=== PATIENT | male | born 1945 | race Caucasian/White ===

== ENCOUNTER → 2019-02-11 11:56 | Outpatient (CLI) | payer OTHER, SELFPAY ==
[2019-02-11 12:38] LABS: BUN Creatinine Ratio 25.3 (6-22); Blood Urea Nitrogen 38 mg/dL (9-20); Estimated Glomerular Filt Rate 46.1 mL/min (>60)
--- NOTE | 2019-02-11 12:56 | DI.CT.S_ITS ---
PROCEDURE: CT ABDOMEN WO CON INDICATIONS: GENERALIZED ABD PAIN TECHNIQUE: After the administration of oral contrast, 5 mm thick sections acquired from the diaphragms to the iliac crests. 5 mm coronal and sagittal reformats were then performed. For radiation dose reduction, the following was used: automated exposure control, adjustment of mA and/or kV according to patient size. COMPARISON: [facility], CT, ABDOMEN/PELVIS WITH CONTRAST, 10/05/2012, 16:05. FINDINGS: Image quality: Excellent. Lung bases: Lung bases are clear. Midline sternotomy, pacer. Cardiomegaly with left ventricular and left atrial enlargement. Solid organs: Liver is normal in size. Gallbladder is unremarkable. Pancreas is normal in contours. Spleen is normal in size. No adrenal nodules. Both kidneys are normal in size, without hydronephrosis or nephrolithiasis. Peritoneum and bowel: Bowel loops demonstrate normal wall thickness and caliber. No free fluid or air. Mild colonic diverticulosis. Nodes and vessels: No retroperitoneal or mesenteric adenopathy by size criteria. Minimal increase in the size of an infrarenal abdominal aortic aneurysm, previously 3.4 x 3.6 cm and currently 4.1 x 4.1 cm. Unchanged size of right common iliac artery aneurysm, measuring 2.1 cm. Bones: No suspicious bony lesions. No vertebral body compression fractures. Miscellaneous: No ventral hernias. IMPRESSION: 1. Minimal increase in size of abdominal aortic aneurysm, measuring 4.1 x 4.1 cm. 2. Stable right common iliac artery aneurysm. Pelvis not imaged. 3. Cardiomegaly. 4. Mild diverticulosis of the descending colon. Dictated by: Srinath Crawford M.D. on 02/11/2019 at 13:56 Approved by: Srinath Crawford M.D. on 02/11/2019 at 14:11
== END ==
PROVIDERS: Family Provider Internal Medicine; PCP Internal Medicine; Visit Provider Internal Medicine
DX: R10.84 Generalized abdominal pain (principal); I71.4 Abdominal aortic aneurysm, without rupture; I72.3 Aneurysm of iliac artery; I51.7 Cardiomegaly; K57.30 Diverticulosis of large intestine without perforation or abscess without bleeding
CPT/HCPCS: 36415; 74150; 82565; 84520

== ENCOUNTER → 2019-02-22 10:05 | Outpatient (CLI) | payer OTHER, SELFPAY ==
[2019-02-24 16:25] LABS: Urea Breath Test >18YRS NOT DETECTED
== END ==
PROVIDERS: PCP Internal Medicine; Visit Provider Internal Medicine
DX: R10.84 Generalized abdominal pain (principal)
CPT/HCPCS: 83013

== ENCOUNTER → 2019-08-17 08:40 | Outpatient (CLI) | payer OTHER, SELFPAY ==
--- NOTE | 2019-08-17 | DI.US.S_ITS ---
PROCEDURE: US RENAL COMPLETE INDICATIONS: CKD STAGE III TECHNIQUE: Real-time scanning was performed of the kidneys and bladder, with image documentation. COMPARISON: [facility], CT, CT ABDOMEN WO [facility], 02/11/2019, 13:06. FINDINGS: Kidneys: Kidneys are normal in size. Right kidney measures 11.0 cm long; left kidney measures 12.0 cm long. Right renal cortical thickness is 1.7 cm; left renal cortical thickness is 1.8 cm. Renal cortical echotexture appears increased. No hydronephrosis or nephrolithiasis. No suspicious solid mass lesions. Bilateral parenchymal and parapelvic cysts are evident measuring up to approximately 2.5 cm in diameter. Bladder: Pre-void bladder volume is 202 mL. Post-void residual is 156 mL. Pre-void images demonstrate no intraluminal masses or stones. Miscellaneous: Aneurysmal dilatation of the abdominal aorta is present, measuring up to 4.1 cm in maximal AP dimension. This is similar to the exam from 02/11/19. IMPRESSION: 1. Echogenic bilateral kidneys is compatible with chronic medical renal disease. 2. No hydronephrosis or shadowing nephrolithiasis. 3. There is a moderate to large amount of residual urine within the bladder after voiding. 4. Abdominal aortic aneurysm. Dictated by: Watson Billy M.D. on 08/17/2019 at 9:04 Approved by: Watson Billy M.D. on 08/17/2019 at 9:08
== END ==
PROVIDERS: PCP Internal Medicine; Referring Provider Internal Medicine; Visit Provider Internal Medicine
DX: N18.3 Chronic kidney disease, stage 3 (moderate) (principal); I71.4 Abdominal aortic aneurysm, without rupture
CPT/HCPCS: 76770

== ENCOUNTER → 2019-09-01 19:17 | Outpatient (ROUT) | payer OTHER, SELFPAY ==
[2019-09-01 19:19] LABS: Bacteria Urine None Seen; RBC Urine None Seen (0-5/HPF); WBC Urine None Seen (0-5/HPF)
[2019-09-01 19:28] LABS: Appearance Urine UA CLEAR; Bilirubin Urine UA NEGATIVE (NEGATIVE); Color Urine UA YELLOW; Glucose Urine UA NEGATIVE (Negative); Ketones Urine UA NEGATIVE (NEGATIVE); Leukocyte Esterase Urine UA NEGATIVE (NEGATIVE); Nitrite Urine UA NEGATIVE (Negative); Occult Blood Urine UA NEGATIVE (Negative); Protein Urine UA TRACE (Negative); Specific Gravity Urine UA 1.015 (1.000-1.035); Urobilinogen Urine UA 0.2 E.U./dL (0.2)
[2019-09-01 19:34] LABS: Culture Indicated Urine Cult Not Indicated; Urine Comments Microscopic Normal
[2019-09-01 19:50] LABS: Alanine Aminotransferase 19 IU/L (<50); Albumin 4.4 g/dL (3.5-5.0); Albumin Globulin Ratio 1.6 (1.0-2.8); Alkaline Phosphatase 65 U/L (38-126); Aspartate Aminotransferase 30 IU/L (17-59); BUN Creatinine Ratio 16.7 (6-22); Bilirubin Total 0.6 mg/dL (0.2-1.3); Blood Urea Nitrogen 24 mg/dL (9-20); Calcium 9.9 mg/dL (8.4-10.2); Carbon Dioxide 30 mmol/L (22-32); Chloride 104 mmol/L (98-107); Estimated Glomerular Filt Rate 48.4 mL/min (>60); Globulin 2.8 g/dL (1.7-4.1); Glucose 109 mg/dL (80-110); HEMOLYSIS < 15 (0-50); Potassium 4.8 mmol/L (3.4-5.1); Sodium 140 mmol/L (137-145); Total Protein 7.2 g/dL (6.3-8.2)
[2019-09-03 06:36] LABS: PSA Free % 42.4 % (.); PSA, Total 2.9 ng/mL (0.0-4.0)
== END ==
PROVIDERS: PCP Internal Medicine; Visit Provider Internal Medicine
DX: Z12.5 Encounter for screening for malignant neoplasm of prostate (principal); R53.1 Weakness; R30.0 Dysuria
CPT/HCPCS: 80053; 81001; 84153; 84154

== ENCOUNTER → 2019-09-26 21:39 | Outpatient (ROUT) | payer OTHER, SELFPAY ==
[2019-09-26 22:05] LABS: Hematocrit 51.6 % (41-53); Hemoglobin 17.1 g/dL (13.5-17.5); Mean Corpuscular HGB Conc 33.2 % (30-36); Mean Corpuscular Hemoglobin 33.8 PG (26-34); Mean Corpuscular Volume 101.9 fL (80-100); Platelet Count 190 X10^3/uL (150-400); Red Blood Cell Count 5.06 X10^6/uL (4.5-5.9); Red Cell Distribution Width 13.8 % (11.6-14.8); White Blood Cell Count 9.8 X10^3/uL (4.5-11.0)
[2019-09-26 22:54] LABS: Add Manual Diff / Slide Review YES
[2019-09-26 23:49] LABS: Total Cells Counted 100
[2019-09-26 23:50] LABS: Macrocytosis 1+; Neutrophils Absolute Manual 5096 /uL (3000-5900)
[2019-09-27 06:09] LABS: Vitamin B12 799 pg/mL (239-931)
== END ==
PROVIDERS: PCP Internal Medicine; Visit Provider Internal Medicine
DX: R53.82 Chronic fatigue, unspecified (principal)
CPT/HCPCS: 82607; 84443; 85025

== ENCOUNTER → 2019-10-21 11:09 | Outpatient (CLI) | payer OTHER, SELFPAY ==
--- NOTE | 2019-10-21 | DI.CT.S_ITS ---
PROCEDURE: CT LUMBAR SPINE WO CON INDICATIONS: Spondylosis without myelopathy or radiculopathy, l TECHNIQUE: Noncontrast 3 mm thick sections acquired from the T12 level to the sacrum. Sagittal and coronal reformats were constructed. For radiation dose reduction, the following was used: automated exposure control. COMPARISON: [facility], CT, CT ABDOMEN WO CON, 02/11/2019, 13:06. FINDINGS: Image quality: Excellent. Bones: There is mild leftward scoliotic curvature with apex at L2-3. There is appearance of transitional mad may with what appears to be lumbarization of the 1st sacral vertebral body. For purposes of this exam, vertebral bodies are levels 1 through 5. There is slight wedge deformity identified at T10, unchanged. Minimal anterior osteophytes are present at T10, T11, T12, L2, L3 and L4. Moderate to severe disc space narrowing is noted at L4-5, moderate L5-S1, minimal L2-3 and L3-4. Mild disc bulges are noted at T12-L1, L1-L2, L2-3, L3-4, L4-5, L5-S1. Mild spinal stenosis is present at L1-L2, severe L2-3, moderate to severe L3-4. Moderate right and mild left foraminal narrowing at L2-3, severe right and moderate left L3-4, severe bilateral, right greater than left with slight flattening on the right at L4-5, severe right and moderate left L5-S1. Multilevel facet and ligamentum flavum hypertrophy are present. Soft tissues: No retroperitoneal masses or hematomas. Visualized aorta demonstrates aneurysmal dilation within the infrarenal portion measuring approximately 4.1 cm, unchanged compared to prior exam. IMPRESSION: 1. Multilevel degenerative changes. 2. Multilevel spinal stenosis most severe at L2-3 secondary to disc bulge with contributing affective facet/ligamentum flavum arthropathy. 3. Multilevel foraminal narrowing most severe at L3-4, L4-5, L5-S1 secondary to facet arthropathy as well as scoliotic curvature. Dictated by: Natty Chandler M.D. on 10/21/2019 at 15:18 Approved by: Natty Chandler M.D. on 10/21/2019 at 15:26
== END ==
PROVIDERS: PCP Internal Medicine; Referring Provider Internal Medicine; Visit Provider Physical Medicine & Rehabilitation
DX: M47.816 Spondylosis without myelopathy or radiculopathy, lumbar region (principal); M47.817 Spondylosis without myelopathy or radiculopathy, lumbosacral region; M48.061 Spinal stenosis, lumbar region without neurogenic claudication; M48.07 Spinal stenosis, lumbosacral region; M41.86 Other forms of scoliosis, lumbar region
CPT/HCPCS: 72131

== ENCOUNTER → 2020-04-24 11:35 | Outpatient (CLI) | payer OTHER, SELFPAY ==
--- NOTE | 2020-04-24 | DI.CT.S_ITS ---
PROCEDURE: CT ABDOMEN W CON INDICATIONS: Unspecified abdominal pain TECHNIQUE: After the administration of oral and intravenous contrast, 5 mm thick sections acquired from the diaphragms to the iliac crests. 5 mm thick coronal and sagittal reformats were acquired. For radiation dose reduction, the following was used: automated exposure control, adjustment of mA and/or kV according to patient size. COMPARISON: [facility], CT, ABDOMEN/PELVIS WITH CONTRAST, 03/23/2016, 20:38. [facility], CT, CT ABDOMEN WO CON, 02/11/2019, 13:06. FINDINGS: Image quality: Excellent. Lung bases: Left basilar atelectasis. Heart size is mildly increased. There is a cardiac pacemaker. Solid organs: Diffuse hepatic steatosis. Liver is normal in size and enhancement. Gallbladder is normal . Biliary system is non dilated. Pancreas enhances normally. Spleen is normal in size and enhancement. No adrenal nodules. Kidneys are normal in size, without hydronephrosis. There are parapelvic renal cysts in right kidney. Peritoneum and bowel: Stomach is mildly distended. With mild gastric wall thickening involving the lesser curvature There are scattered colonic diverticula. No CT findings to suggest acute diverticulitis. Moderate amount of stool in colon. Contrast enhanced bowel loops appear normal in caliber. No free fluid or air. Nodes and vessels: No retroperitoneal or mesenteric adenopathy by size criteria. There is a infrarenal abdominal aortic aneurysm measuring 3.9 x 3.8 cm. [id number] atherosclerotic calcification. Bones: No suspicious bony lesions. No vertebral body compression fractures. Mild levo scoliosis. Degenerative changes are noted in thoracic and lumbar spine. Miscellaneous: No ventral hernias. IMPRESSION: 1. No acute abnormality in abdomen. 2. Diverticulosis without diverticulitis. 3. Stable infrarenal abdominal aortic aneurysm measuring up to 3.9 cm. 4. Distended stomach. There is mild gastric wall thickening involving the lesser curvature. 5. Hepatic steatosis. Dictated by: Rito Marin M.D. on 04/24/2020 at 14:26 Approved by: Rito Marin M.D. on 04/24/2020 at 14:33
== END ==
PROVIDERS: PCP Internal Medicine; Referring Provider Internal Medicine; Visit Provider Internal Medicine
DX: R10.9 Unspecified abdominal pain (principal); I71.4 Abdominal aortic aneurysm, without rupture; K76.0 Fatty (change of) liver, not elsewhere classified; K57.90 Diverticulosis of intestine, part unspecified, without perforation or abscess without bleeding; K31.89 Other diseases of stomach and duodenum
CPT/HCPCS: 74160

== ENCOUNTER → 2020-04-25 19:12 | Outpatient (ROUT) | payer OTHER, SELFPAY ==
[2020-04-25 20:01] LABS: Add Manual Diff / Slide Review NO; Basophils Absolute Auto 0 /uL (0-100); Basophils Percent Auto 0.7 % (0-2); Eosinophils Absolute Auto 200 /uL (0-450); Eosinophils Percent Auto 3.1 % (2-4); Hemoglobin 15.8 g/dL (13.5-17.5); Lymphocytes Absolute Auto 2100 /uL (1100-4500); Lymphocytes Percent Auto 32.3 % (25-40); Mean Corpuscular HGB Conc 33.6 % (30-36); Mean Corpuscular Hemoglobin 33.5 PG (26-34); Mean Corpuscular Volume 99.8 fL (80-100); Monocytes Absolute Auto 600 /uL (0-900); Monocytes Percent Auto 9.3 % (3-14); Neutrophils Absolute Auto 3600 /uL (1500-7000); Neutrophils Percent Auto 54.6 % (50-75); Platelet Count 173 X10^3/uL (150-400); Red Blood Cell Count 4.71 X10^6/uL (4.5-5.9); Red Cell Distribution Width 13.3 % (11.6-14.8); White Blood Cell Count 6.6 X10^3/uL (4.5-11.0)
[2020-04-25 20:03] LABS: Alanine Aminotransferase 24 IU/L (<50); Albumin 4.3 g/dL (3.5-5.0); Albumin Globulin Ratio 1.5 (1.0-2.8); Alkaline Phosphatase 64 U/L (38-126); Aspartate Aminotransferase 36 IU/L (17-59); Bilirubin Total 0.5 mg/dL (0.2-1.3); Blood Urea Nitrogen 27 mg/dL (9-20); Calcium 9.9 mg/dL (8.4-10.2); Carbon Dioxide 33 mmol/L (22-32); Chloride 105 mmol/L (98-107); Globulin 2.8 g/dL (1.7-4.1); Glucose 108 mg/dL (80-110); HEMOLYSIS < 15 (0-50); Potassium 5.1 mmol/L (3.4-5.1); Sodium 140 mmol/L (137-145); Total Protein 7.1 g/dL (6.3-8.2)
== END ==
PROVIDERS: PCP Internal Medicine; Visit Provider Internal Medicine
DX: K29.50 Unspecified chronic gastritis without bleeding (principal); R10.84 Generalized abdominal pain
CPT/HCPCS: 80053; 85025

== ENCOUNTER → 2020-06-20 08:36 | Outpatient (CLI) | payer OTHER, SELFPAY ==
[2020-06-20 10:54] LABS: COVID19 -Nasal RAPID Negative (Negative)
== END ==
PROVIDERS: PCP Internal Medicine; Visit Provider Family Medicine Sleep Medicine
DX: Z20.822 Contact with and (suspected) exposure to COVID-19 (principal)
CPT/HCPCS: 87635; C9803

== ENCOUNTER → 2020-06-22 14:38 | Outpatient (ROUT) | payer OTHER, SELFPAY ==
[2020-06-23 09:58] LABS: PSA Free % 39.8 % (.); PSA, Total 4.3 ng/mL (0.0-4.0)
== END ==
PROVIDERS: PCP Internal Medicine; Visit Provider Internal Medicine
DX: Z12.5 Encounter for screening for malignant neoplasm of prostate (principal)
CPT/HCPCS: 84153; 84154

== ENCOUNTER → 2021-01-15 11:41 | Outpatient (CLI) | payer OTHER, SELFPAY ==
--- NOTE | 2021-01-15 | DI.CT.S_ITS ---
PROCEDURE: CT UE RT WO CON INDICATIONS: Primary osteoarthritis, right shoulder. Pain TECHNIQUE: Noncontrast 1-1.5 mm thick sections acquired from the acromioclavicular joint to the inferior scapula, with coronal and sagittal reformatting. COMPARISON: [facility] [place], CR, XR SHOULDER 2+ VIEWS BILATERAL, 08/06/2020, 15:15. FINDINGS: Image quality: Excellent. Bones: No acute, displaced fracture. Advanced degenerative changes of the glenohumeral articulation with periarticular osteophytosis, joint space loss, and sclerosis of the opposing articular surfaces. A 1.2 cm intra-articular body is seen in the anterior joint space. Moderate arthrosis of the AC joint with joint space loss and osteophytosis. Soft tissues: No significant abnormality. IMPRESSION: Shoulder osteoarthrosis as detailed above. Dictated by: Sesar Osorio M.D. on 01/15/2021 at 12:12 Approved by: Sesar Osorio M.D. on 01/15/2021 at 12:15
== END ==
PROVIDERS: PCP Internal Medicine; Referring Provider Orthopaedic Surgery; Visit Provider Orthopaedic Surgery
DX: M19.011 Primary osteoarthritis, right shoulder (principal)
CPT/HCPCS: 73200

== ENCOUNTER → 2021-03-20 10:40 | Outpatient (CLI) | payer OTHER, SELFPAY ==
[2021-03-20 13:33] LABS: COVID19 -Nasal RAPID Negative (Negative)
== END ==
PROVIDERS: PCP Internal Medicine; Visit Provider Family Medicine Sleep Medicine
DX: Z20.822 Contact with and (suspected) exposure to COVID-19 (principal)
CPT/HCPCS: 87635; C9803

== ENCOUNTER 2021-03-21 06:07 | Day surgery (SDC) | payer OTHER, SELFPAY ==
[2021-03-11 12:47] VITALS: BMI 30.5
[2021-03-21] VITALS (24 sets, daily range): BP systolic 93–145; BP diastolic 59–100; PULSE 75–142; RESP 11–21; TEMP 35.7–37.1; O2SAT 91–99; BMI 30.5
--- NOTE | 2021-03-21 06:59 | DI.RAD.S_ITS ---
PROCEDURE: XR SHOULDER RT MIN 2V INDICATIONS: prosthesis placement TECHNIQUE: 2 views of the shoulder were acquired. COMPARISON: [facility] [place], CR, XR SHOULDER 2+ VIEWS BILATERAL, 08/06/2020, 15:15. FINDINGS: Bones: Interval placement of a right shoulder arthroplasty. The remaining visualized osseous structures appear maintained. Visualized ribs appear intact. Soft tissues: Subcutaneous emphysema about the arthroplasty. A surgical drain is seen in situ. IMPRESSION: Expected postsurgical change. Dictated by: Sesar Osorio M.D. on 03/21/2021 at 13:50 Approved by: Sesar Osorio M.D. on 03/21/2021 at 13:52
[2021-03-21] MEDS: VANCOMYCIN 1,000 MG/200 ML PIGGYBACK 200 MG IV ×2 (07:29→19:34)
--- NOTE | 2021-03-21 07:31 | PM.HP.1 ---
History of Present Illness History of Present Illness Date Patient Seen: 03/21/21 Time Patient Seen: 07:20 Chief complaint: Right shoulder pain Narrative: 75-year-old gentleman end-stage arthritis to his right shoulder causing him significant amount of pain and dysfunction. Patient has noticed continued loss of motion difficulty with his ADLs due to the right shoulder pain. He has tried a variety of conservative measures with little to no relief. Patient History Medical History AAA (abdominal aortic aneurysm) Anticoagulated on warfarin Atrial fibrillation Atrial flutter Biventricular ICD (implantable cardioverter-defibrillator) in place BPH associated with nocturia CAD, multiple vessel (~1997) Essential hypertension Fatigue due to sleep pattern disturbance History of blood transfusion History of TN (myocardial infarction) (~1997) HTN (hypertension) Hyperlipidemia Hypertriglyceridemia Insomnia due to medical condition Intolerance of continuous positive airway pressure (CPAP) ventilation (~09/2020) Ischemic cardiomyopathy with implantable cardioverter-defibrillator (ICD) Lung nodule Nocturnal hypoxemia Obstructive sleep apnea, adult Peripheral vascular disease Popliteal artery aneurysm, bilateral Stomach ulcer Tachy-parker syndrome Surgical History History of coronary artery bypass graft x 3 (~1997) History of esophagogastroduodenoscopy (EGD) Hx of appendectomy Hx of bilateral cataract extraction (2018) Stented coronary artery (~2000) Family & Social History Social History: household members children Prior Living Arrangements House Safety & Behavioral: Feels Safe in Current Yes Environment Been Physically Hurt or No Threatened By a Person Suicidal Ideation Description None Suicide Plan Description No Plan Tobacco & Substance use: Smoking Status Former smoker alcohol intake current alcohol intake frequency holiday/special occasion Substance Use Type does not use Meds Home Medications and Allergies Home Medications Medication Instructions Recorded Confirmed Type ezetimibe 10 mg tablet (Zetia) 10 mg PO QDAY #0 06/14/10 03/21/21 History metoprolol tartrate 25 mg tablet 50 mg PO BID #0 06/14/10 03/21/21 History dicyclomine 10 mg capsule 10 mg PO DAILY PRN 03/11/21 03/11/21 History fenofibrate 160 mg tablet 160 mg PO BEDTIME 03/11/21 03/21/21 History losartan 50 mg tablet 50 mg PO BEDTIME 03/11/21 03/21/21 History pantoprazole 40 mg tablet,delayed 40 mg PO DAILY PRN 03/11/21 03/11/21 History release tamsulosin 0.4 mg capsule 0.4 mg PO DAILY 03/11/21 03/11/21 History warfarin 5 mg tablet 5 mg PO SEEINSTR 03/11/21 03/21/21 History Allergies Allergy/AdvReac Type Severity Reaction Status Date / Time Xyyumci-GTO-RaO Reductase Allergy Severe Dizzy, Verified 03/21/21 06:50 Inhibitor syncope, [[id number] REDUCTASE weakness, INHIBITOR] leg cramps Exam Vital Signs (past 8 hours): - 03/21/21 06:45 Temperature 97.5 F L Pulse Rate 86 Respiratory Rate 16 Blood Pressure 145/95 H Pulse Oximetry 96 Oxygen Delivery Method Room Air Narrative Exam Narrative: On physical exam, no significant swelling or deformities to the right shoulder. Patient has decreased range of motion of the right shoulder. Lot of pain and crepitus coming from the glenohumeral joint with range of motion. Difficulty going beyond 90? of both forward flexion and abduction both actively as well as passively. Up 10? of external rotation and internal rotation to the back pocket. No sign of any glenohumeral joint instability. No sign of any major rotator cuff tears. Assessment & Plan Assessment & Plan narrative: Patient with end-stage arthritis to the right shoulder this been unresponsive to conservative treatment. Due to this fact, patient is interested in proceeding with a right total shoulder arthroplasty. Patient fully understands the risks and limitations associated with this procedure. All of his questions and concerns were answered to his full satisfaction. The risk, benefits, alternatives, possible complications, operative course, and postop outcomes were discussed. Complications including but not limiting to bleeding, infection, fracture, nerve injury, continued pain postoperatively or instability postoperatively were discussed in detail. Medical complications including but not limited to deep venous thrombosis event, anesthesia complications with excessive bleeding, vascular events or cardiac events and other possible complications were discussed in detail. Need for postoperative rehabilitation and anticipated hospital stay and clinical course were discussed in detail. Patient acknowledges understanding and elects to proceed with surgery. Time Spent With Patient Critical Care time: I spent a total of [] minutes of critical care time on this patient's care today; this time is exclusive of procedural time.
--- NOTE | 2021-03-21 07:35 | PM.PREOP ---
Pre-operative Note COVID-19 Criteria for continued procedure: Possibility delay results in more complex future surgery or treatment, Increased loss of function, Continuing or worsening of significant or severe pain, Deterioration of the patient's condition or overall health and Non-surgical alternatives not available or appropriate per current SOC Interval Note History & Physical reviewed/Exam performed by Physician: Yes Changes to H&P: No
[2021-03-21] MEDS: ACETAMINOPHEN 325 MG TABLET 975 MG PO (07:39)
--- NOTE | 2021-03-21 07:50 | PM.PROC.1 ---
Procedures Date/Time Date of procedure: 03/21/21 Time of procedure: 07:45 Nerve Block Time out performed: Yes Local anesthetic used: bupivacaine 0.5% Location of anesthetic used: RIGHT Nerve blocks: brachial plexus (intrascalene) Procedure successful: Yes Patient tolerated procedure: well and no complications Complications: none Additional comments: Intrascalene block performed for post-op pain control at surgeon request. Patient was positioned with IV, O2, monitors and rescue meds available. Prepped and timeout performed. Target identified with continuous ultrasound guidance. 15mL of bupivicaine 0.5% was injected perineurally with intermittent aspiration and injection. No blood, no paresthesias, no acute complications. Ultrasound pic attained.
--- NOTE | 2021-03-21 07:53 | SUR.PREOP ---
Block start time [0742] . after time out done by dr. johnson. Monitoring initiated and maintained throughout procedure. Oxygen and medications available per anesthesiologist instructions. Patient remained stable throughout procedure, no adverse reactions noted. Block end time [0850].
[2021-03-21] MEDS: GENTAMICIN 200 MG in SODIUM CHLORIDE 0.9% 100 ML 105 ML IV (08:11)
--- NOTE | 2021-03-21 08:30 | SUR.OPER ---
Beach chair with Maquet shoulder positioner. Lower body on padded OR bed. Head in foam padded head cradle, secured with straps. Non-operative arm secured <90 degrees abduction. Pillow under knees. Safety belt at thigh. Cloth tape over blanket over lower legs.
[2021-03-21] MEDS: BUPIVACAINE 0.25% (PF) 30 ML, EPINEPHrine 0.3 MG INJ (08:52)
[2021-03-21] MEDS: LIDOCAINE 1% 20 ML INJ (08:57)
[2021-03-21] MEDS: LACTATED RINGERS 1,000 ML 120 ML IV (09:15)
--- NOTE | 2021-03-21 10:12 | P.OP_ITS ---
Operative Date/Time/Diagnoses Date of procedure: 03/21/21 Time of procedure: 08:00 Pre-op diagnosis: Right shoulder arthritis Post-op diagnosis: same Procedure & Clinicians Procedure: Right total shoulder arthroplasty Same procedure as scheduled: Yes Indications: End-stage arthritis right shoulder Surgeon: Travis Ames Yield Engineer: Patricia Cullen Anesthesia Type: General and Peripheral nerve block Operative Notes Findings: Significant end-stage arthritic changes to the glenohumeral joint. Large osteophytes to the anterior inferior and posterior aspect of the humeral head. Significant flattening of the humeral head with complete loss of cartilage and signs of bleeding bone. Glenoid had similar changes. Loose bodies throughout the glenohumeral joint. No sign of any rotator cuff tear or high-riding humeral head. Closure Type: primary Applied: implant(s) (Size 10 stem, large glenoid, 52 x 20 humeral head) Estimated Blood Loss (mL): 100 Blood products transfused: none Procedure in detail: On date of service, Patient was met in the holding area. The operative site was signed and witnessed by the OR staff. The surgeries once again discussed with the patient and any remaining questions they had were answered fully. Patient was taken back to the operating theater and placed on the operating table in a supine position. Great care was taken to ensure that all bony prominences were properly padded. Patient was then placed into the beach chair position. The head and neck were properly positioned and secured. A timeout was performed verifying patient's name, procedure, and the operative site. The upper extremity was then prepped and draped in the normal sterile fashion. Previously, the bony anatomy and incision were marked out as well as injected with Marcaine with epinephrine. A deltopectoral approach was performed. 10 blade was used to incise the skin and fascial tissue. A deep knife was used to continue sharp dissection until the cephalic vein was visualized. The cephalic vein was dissected free allowing us to expose the deltopectoral interval. This interval was then developed. A Jauregui elevator was used to free up the deltoid of any scarring both superficially as well as deeply. The vein and the deltoid were taken laterally while the pectoralis was taken medially. This gave us good visualization of the strap muscles. The clavipectoral fascia was removed and the strap muscles were then retracted medially with the pectoralis. This gave us stabilization of the subscapularis. The circumflex vessels were ligated and the subscapularis was sharply excised off the lesser tuberosity and then tagged. Once the subscapularis was released we're able to dislocate the shoulder. Patient had end-stage arthritic changes to the humeral head as well as the glenoid with large osteophytes anterior inferiorly as well as posteriorly. A Ronger was then used to remove the osteophytes. See findings above for descriptions of the humeral head and glenoid. Next, cutting guide was placed and a saw was used to remove the humeral head. Once the head was removed it was templated. A 52 x 20 head gave us the best coverage. A starting awl was then used to find the canal and then the humerus was reamed and broached. Trial stem was placed and a variety of heads were trialed. A size 10 stem gave us the best fit. Protector placed for the osteotomy was then placed and and we turned our attention back to the subs capularis as well as the glenoid. The subscapularis was freed up and a 360? fashion. The degenerative anterior and inferior capsular tissue was removed. This was followed by removing the degenerative labral tissue from around the glenoid as well as the biceps insertion. Retractors were used to protect the axillary nerve while we remove the degenerative capsular and labral tissue. This gave us good visualization of the glenoid. Glenoid trials were used until we found the appropriate fit and curvature. A large glenoid provided the best fit. The center hole was drilled followed by reaming of the glenoid. The wound was copiously irrigated after reaming. Next the pegs were drilled and a trial glenoid was impacted into place. Once we were satisfied with the preparation of the glenoid, the final component was cemented into place. This was followed by impaction. We Return to our attention back to the humerus. The protector plate was removed and heads were trialed once again until we found the appropriate fit. Once again the 52 x 20 head provided the best coverage as well as stability to the glenohumeral joint. Trials were removed and bone tunnels were made into the humeral neck. #2 FiberWire were passed through the bone tunnels for eventual subscapularis repair. The final stem and head were impacted into place and the shoulder was reduced. It was taken through range of motion and was felt to be stable in both posterior translation as well as external and internal rotation with abduction. The subscapularis was repaired back to the lesser tuberosity through the bone tunnels. This was then reinforced with soft tissue repair. Part of the rotator interval was then closed. A drain was placed and the rest of the wound was closed in a layered fashion. The shoulder was then cleaned dried and dressed and the patient was taken to the PACU in stable condition. Patient will follow our postoperative protocol for total shoulder arthroplasty. Complications: none Post-operative Condition: stable Disposition: Acute Care Plan for aftercare: Patient will follow our postoperative protocol for total shoulder arthroplasty.
[2021-03-21] MEDS: LACTATED RINGERS 1,000 ML 125 ML IV ×2 (12:10→21:03)
--- NOTE | 2021-03-21 14:45 | PT.IIE ---
Current Diagnoses Primary osteoarthritis, right shoulder (03/21/21) Surgery Performed Operation Date: 03/21/21 07:45 Actual Procedures p Total Shoulder Arthroplasty(Right) - Travis Ames MD Medical History (Last Reviewed 03/21/21 @ 07:33 by Travis Ames MD) AAA (abdominal aortic aneurysm) Anticoagulated on warfarin Atrial fibrillation Atrial flutter Biventricular ICD (implantable cardioverter-defibrillator) in place BPH associated with nocturia CAD, multiple vessel (~1997) Essential hypertension Fatigue due to sleep pattern disturbance History of blood transfusion History of OK (myocardial infarction) (~1997) HTN (hypertension) Hyperlipidemia Hypertriglyceridemia Insomnia due to medical condition Intolerance of continuous positive airway pressure (CPAP) ventilation (~09/2020) Ischemic cardiomyopathy with implantable cardioverter-defibrillator (ICD) Lung nodule Nocturnal hypoxemia Obstructive sleep apnea, adult Peripheral vascular disease Popliteal artery aneurysm, bilateral Stomach ulcer Tachy-parker syndrome Physical Therapy Inpatient Evaluation/Re-Eval M1 PT/OT-IP Prior Functional Status Start: 03/21/21 15:50 Freq: NEEDED Status: Active Protocol: Document 03/21/21 14:45 AB (Rec: 03/21/21 16:17 AB [id number]) Medical Review Prior Functional Status Medical History Reviewed Yes Communication able to make needs known Mobility and Gait pt stated that he is indepenent with all mobilities and ambulation without AD Social History Household Members children Living Arrangements House Number of Floors (Floors) One Floor Number of Stairs To Enter/Railing? 4 steps to enter with B rails Home Environment High Toilet,Tub/Shower Home Equipment Front Wheel Walker,Hand Held Shower,Grab Bars In Shower Additional Social History Comment pt lives with his daughter and son-in-law but both works and she is usally by himself M2 PT-IP Current Condition Start: 03/21/21 15:50 Freq: NEEDED Status: Active Protocol: Document 03/21/21 14:45 AB (Rec: 03/21/21 16:17 AB [id number]) Physical Therapy Current Condition Current Condition Evaluation Date 03/21/21 Treatment Diagnosis s/p R TSA; difficulty in walking Onset Date 03/21/21 M3 PT-IP Subjective Start: 03/21/21 15:50 Freq: NEEDED Status: Active Protocol: Document 03/21/21 14:45 AB (Rec: 03/21/21 16:17 AB [id number]) Subjective Physical Therapy Visit Type Type Initial Evaluation Visit Start Time 14:45 Visit Stop Time 15:36 Total Visit Minutes 51 Number of PRELOAD SUPERVISOR Visits 0 Physical Therapy Visit Comments Patient Comments agreeable to do PT M4 PT-IP Mobility and Gait Start: 03/21/21 15:50 Freq: NEEDED Status: Active Protocol: Document 03/21/21 14:45 AB (Rec: 03/21/21 16:17 AB [id number]) PT-Bed Mobility Assessment Supine to Sit Supine to Sit Contact Guard Assistance Sit to Supine Sit to Supine Standby Assistance PT-Transfer Assessment Sit to and From Stand Sit to and from Stand Contact Guard Assistance, Minimal Assistance,1 Person Assistance,2 Person Assistance Equipment Transfer Assistive Device None,Gait Belt Orthotic/Prosthetic Devices or Brace: No Transfers Transfer Destination Toilet Transfer Technique ambulated Transfer Ability Level of Assist Contact Guard Assistance, Minimal Assistance,1 Person Assistance,Use of Upper Extremities Comments Mobility Comments educated pt on shoulder precautions. BP in supine 99/ 65. pt completed supine to sit SBA but with difficulty requiring increase time to complete task. pt was able to sit on EOB SBA. c/o initial dizziness. BP checked: 102/66 . Assisted pt with sling management. educated on elbow /wrist/hand exercises. pt still has RUE numbness and lacks motor control to complete exercises. BP prior to standin/64. no c/o dizziness pt completed sit to stand CGA to min A. min A with intial standing. ambulated in room min A ~ 25 ft. unsteady antalgic gait and very guarded . pt sat on EOB. requested to use the toilet. sit to stand CGA and ambulated to the toilet without AD CGA to min A and cues. slight LOB with turns. able to maintain standing CGA while completing toileting. ambulated out of the toilet and ambulated towards the sink CGA to min A and completed handwashing CGA for standing balance. ambulated back to bed without AD CGA to min A. completed sit to supine SBA. positioned in bed. call light within reach . Gait Assessment Gait Gait Assistance Required: Contact Guard Assist,Minimum Assistance Distance (Feet) 25 Able to Maintain Weight Bearing Status Yes During Gait Assistive Devices Assistive Device Gait Belt,Front Wheeled Walker Orthotic/Prosthetic Devices or Brace: No Gait Deviations General Gait Pattern Antalgic,Decreased Stride Length,Decreased Feet Clearance,Wide Based Gait Factors Limiting Gait Function Factors Limiting Gait Function Decreased Activity Tolerance, Decreased Strength,Limited Range of Motion,Poor Balance M5 PT-IP Objective Assessments Start: 03/21/21 15:50 Freq: NEEDED Status: Active Protocol: Document 03/21/21 14:45 AB (Rec: 03/21/21 16:17 AB [id number]) Orientation Orientation/Cognition Level of Alertness Alert Orientation Name,Place,Situation Language Function Ability Hard of Hearing Safety Awareness Understands Safety Issues Memory Description No Deficits Noted Gross Range of Motion Lower Extremity ROM Assessment Within Functional Limits Strength Lower Extremity Strength Assessment Within Functional Limits Sensation Assessment Sensation Gross Sensation Right UE Impaired Sensation Description Numbness Other Assessments Other Other Assessments RUE: still does not have motor control M6 PT-IP Treatment Start: 03/21/21 15:50 Freq: NEEDED Status: Active Protocol: Document 03/21/21 14:45 AB (Rec: 03/21/21 16:17 AB [email or web address]) Physical Therapy Treatment Education Education Provided Precautions,Weight Bearing Status,Post-Op Packet,Safety Brace Education [place],Patient Other Treatments Other Treatment Performed educated on sling management M7 PT-IP Assessment and Plan Start: 03/21/21 15:50 Freq: NEEDED Status: Active Protocol: Document 03/21/21 14:45 AB (Rec: 03/21/21 16:17 AB [email or web address]) PT Summary Assessment and Plan Potential Rehabilitation Potential Fair Status of Condition at Evaluation Evolving Summary Impairments Pain,ROM,Strength,Balance, Coordination,Sensation,Tone, Cognition,Bed Mobility, Transfers,Gait,Activity Tolerance Assessment Summary pt s/p R TSA today. Pt requires CGA to min A with mobility. pt lives with family but they work and pt will be by himself most of the time. Pt stated that he plans to go to a rehab place and the doctor's office already contacted the facility . Will assess progress. Goals Bed Mobility Goal Independent Transfer Goal Independent Gait Goal Independent Gait Distance 250 Other Goals up/down 4 steps 1 rail SBA Days to Meet Goals 10 Frequency of Treatment Frequency Of Treatment Twice a Day Treatment Plan Physical Therapy Treatment Plan Bed Mobility Training,Transfer Training,Gait Training, Therapeutic Exercise,Balance Retraining,Post Op Education, Discharge Planning,Hot or Cold Pack,Neuromuscular Re-ed, Coordination Retraining,Manual Therapy Other Recommendations and Next Treatment pendulum, UE exercises, Focus ambulation, stair climbing Precautions Shoulder Precautions Sling,PROM,Internal Rotation to Body,No External Rotation, No Abduction,Forward Flexion to 90 degrees,Pendulums Weight Bearing Status Weight Bearing Status Non-Weight Bearing Allowed Weight Bearing Amount (enter % RUE NWB or #) (%) Recommendations To Nursing Amount of Assist Needed 1 Person Assist Discharge Recommendations PT Discharge Recommendations SNF Rehab Transportation Needs at Discharge Wheelchair/Cabulance
[2021-03-21] MEDS: WARFARIN 5 MG TABLET PO (17:21)
[2021-03-21] MEDS: METOPROLOL IR 50 MG TABLET PO (21:14)
[2021-03-21] MEDS: MAGNESIUM HYDROXIDE 30 ML UDC PO (21:14)
[2021-03-21] MEDS: FENOFIBRATE, MICRONIZED 67 MG CAPSULE 201 MG PO (21:14)
[2021-03-21] MEDS: DOCUSATE 100 MG CAPSULE PO (21:14)
[2021-03-21] MEDS: EZETIMIBE 10 MG TABLET PO (21:50)
--- NOTE | 2021-03-21 22:38 | PC.NURSE ---
Pt requested to take his Ezetimibe 10mg medication at night and not in the morning since that is what he does at home. Charge nurse was informed and told this RN it was okay to change the time to comply with patients typical medication schedule.
[2021-03-22 04:12] VITALS: BP 123/74; PULSE 85; RESP 19; TEMP 36.6; O2SAT 97
[2021-03-22] MEDS: LACTATED RINGERS 1,000 ML 125 ML IV (05:19)
[2021-03-22 06:09] LABS: Hematocrit 36.1 % (41-53); Hemoglobin 12.3 g/dL (13.5-17.5); Mean Corpuscular Hemoglobin 33.4 PG (26-34); Mean Corpuscular Volume 98.2 fL (80-100); Platelet Count 135 X10^3/uL (150-400); Red Blood Cell Count 3.68 X10^6/uL (4.5-5.9); White Blood Cell Count 9.1 X10^3/uL (4.5-11.0)
[2021-03-22] MEDS: ENOXAPARIN 40 MG/0.4 ML SYRINGE SUBCUT (08:31)
[2021-03-22] MEDS: TAMSULOSIN 0.4 MG CAPSULE PO (08:32)
[2021-03-22 08:58] VITALS: BP 102/67; PULSE 81; RESP 18; TEMP 36.2; O2SAT 98
--- NOTE | 2021-03-22 09:24 | PM.PNPO.1 ---
Subjective Subjective Date Patient Seen: 03/22/21 Time Patient Seen: 09:24 Interval history: Patient's pain is 1/10. Denies fever or chills. No nausea or vomiting. Patient does not have assistance at home today I can arrange for assistance to be home with him over the weekend. Exam Vital Signs (past 8 hours): - 03/22/21 04:12 03/22/21 08:58 Temperature 97.8 F 97.1 F L Pulse Rate 85 81 Respiratory Rate 19 18 Blood Pressure 123/74 102/67 Pulse Oximetry 97 98 Oxygen Delivery Method Room Air,Nasal Cannula Oxygen Flow Rate 0 Narrative Exam Narrative: 75-year-old male sitting in bedside in no apparent distress. Dressing is Clean, dry, intact.. Hemovac in place 90 mL of drainage last shift. Motor functions intact distally right upper extremity. Sensations grossly intact to light touch. Good capillary refill. Const General: cooperative Nutritional Appearance: average body habitus Orientation: alert Objective Labs Result Diagrams: 03/22/21 05:59 Labs: Laboratory Results - last 24 hr 03/22/21 05:59 WBC 9.1 RBC 3.68 L Hgb 12.3 L Hct 36.1 L MCV 98.2 MCH 33.4 MCHC 34.0 RDW 13.0 Plt Count 135 L PFS Medical History AAA (abdominal aortic aneurysm) Anticoagulated on warfarin Atrial fibrillation Atrial flutter Biventricular ICD (implantable cardioverter-defibrillator) in place BPH associated with nocturia CAD, multiple vessel (~1997) Essential hypertension Fatigue due to sleep pattern disturbance History of blood transfusion History of [place] (myocardial infarction) (~1997) HTN (hypertension) Hyperlipidemia Hypertriglyceridemia Insomnia due to medical condition Intolerance of continuous positive airway pressure (CPAP) ventilation (~09/2020) Ischemic cardiomyopathy with implantable cardioverter-defibrillator (ICD) Lung nodule Nocturnal hypoxemia Obstructive sleep apnea, adult Peripheral vascular disease Popliteal artery aneurysm, bilateral Stomach ulcer Tachy-parker syndrome Surgical History History of coronary artery bypass graft x 3 (~1997) History of esophagogastroduodenoscopy (EGD) Hx of appendectomy Hx of bilateral cataract extraction (2019) Stented coronary artery (~2000) Social History household members: children Smoking Status: Former smoker alcohol intake: current Assessment & Plan Post-op Postoperative Procedures: Procedures Operation Date: 03/21/21 07:45 Actual Procedure Side Surgeon p Total Shoulder Arthroplasty Right Travis Ames MD Postoperative day: 1 Postoperative status: doing well Postoperative status narrative: Patient progressing as expected Postoperative plan narrative: Mobilize with physical therapy Multimodal pain management Likely discharge to home tomorrow with home health. Quality VTE Deep Vein Thrombosis/Pulmonary Embolism Present on Admission: No
--- NOTE | 2021-03-22 11:28 | CM.DANOTE ---
Patient is a 75 yo male who was admitted on 03/21/21 for Right Total Shoulder Arthroplasty. Pt has [employer] MCR ADV for insurance and his PCP is Dr. Vivian Ching at [facility]. EMR was reviewed. Per Ortho MD, pt tolerated procedure well but may want SNF. Per PT, pt is independent at baseline and lives with family and after surgery pt was requesting SNF. Pt was CGA to min assist. 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 Pt confirms his shoulder pain became too painful to utilize his arm and he is hopeful he heals quickly. Pt denies any hx of HH or SNF and confirms initially he felt SNF would be needed at d/c but now has concerns with COVID outbreaks at facilities and feels he did well enough with PT to d/c home with family assist through the weekend and HH. SW provided HH Choice list and preference is [facility] and is on pt's [employer] list as contracted. Ortho PA arrived bedside and SW updated on pt's request of home with HH and Ortho PA agreeable and plans to d/c tomorrow morning and pt confirms his Dtr can provide transport and Dtr and AMBERLY will be home all weekend to assist. SW updated PT on change of initial plan to now home with family and HH. SW called [facility] and provided new referral and likely d/c tomorrow and QUINTIN Vazquez kindly faxed clinicals to [facility] to review. F2F completed. Plan: SW to follow for plan of d/c home via family POV tomorrow Sat with new [facility] and SW to fax F2F, orders, and d/c summ to [facility] at discharge. UZIEL Flores Discharge Planning/Care Management CM Discharge Assessment Start: 03/22/21 11:26 Freq: Status: Active Protocol: Document 03/22/21 11:27 BF (Rec: 03/22/21 11:28 BF [id number]) Discharge Planning Assessment Assigned Commercial Decorator UZIEL Cosby DPOA/Assigned Designee Name Dtr Ekaterina Moses Contact Information [phone] Advance Directives? No Advance Directives on File No History Provided By Patient,Medical Record Has Patient been admitted in last 30 No days? Prior Living Arrangements House Household Members children Type of transporation used prior to Drives own vehicle admit Independent with ADL's Yes Is patient alert and oriented? Yes Needs Assistance With Managing Medications,Home Chores / Shopping Caregiver for Another No Patient/Family Preference Home with Home Health Barriers to Discharge No Discharge Plan Home with Home Health Community Services Occupational Therapy,Home Health Nurse Referrals Initiated Home Health If patient plan is home with home health Yes : Has signed face to face form been completed? Medicare Choice List Provided Yes SNF/HH Preference [facility] Whiteboard Updated in Patient Room with Yes name and ext. # of Commercial Decorator Review Status In Process Please Provide Date Initial DC 03/22/21 Assessment Was Performed Next Review Type Continued Stay Review Pre-Anesthesia Assessment Start: 03/11/21 12:46 Freq: Status: Complete Protocol: Document 03/11/21 12:47 CAB (Rec: 03/11/21 14:54 CAB [id number]) Pre-Anesthesia Assessment Preferred Name Felipe Patient Information Reviewed Via Phone Assessment Assessment Completed With Patient Comment Outside lab/ECG scanned , COVnPicker screen @ 03/20/20 Primary Care Provider Vivian Ching Seen Specialist in Last 12 Months Yes Specialist Seen Pca,Orthopedist Primary Language Cymraes Marketing Area Manager Required No Height 172.72 cm Weight 91.172 kg Body Mass Index (BMI) 30.5 Hearing Ability Normal Visual Impairment No Limitations Visual Assist None Dentition Type Teeth, Natural Present,Teeth, Missing Barriers to Learning None Hx Anesthesia Reactions No Hx Family Anesthesia Reaction No Hx Malignant Hyperthermia No Hx Blood Transfusions Yes Hx Blood Transfusion Reaction No Anesthesia Review Requested Yes: Surgeon requested re: Cardiac history Hand Rounder Yes: Pt plans to go to a SNF [place] alcohol intake current alcohol intake frequency holidays/special occasions only Smoking Status Former smoker how long ago did patient quit smoking Quit 1975 Substance Use Type does not use Pain Present Pain Reported Musculoskeletal Symptoms Joint Pain,Limited Range of Motion History of Falling (Recent or History of No ) Patient is completely paralyzed or No completely immobile Mental Status Oriented to own ability Is patient on oxygen? No Does patient have CORONEL/SOB No Hx Sleep Apnea Yes: Dose not tolerate CPAP. CPAP/BIPAP use prescribed not used Currently Taking a Beta Horacio Yes: Metoprolol Can You Climb a Flight of Stairs Without Yes SOB Hx Chest Pain No Hx SOB No Hx Syncope or Dizziness No Anti-Coagulant Therapy Yes: Warfarin-hold 5 days prior, Lovenox bridge 3 days prior per Cardiology Has a Pca Yes: Dr. Ledesma-last visit 01/10/21 Cardiac Testing Echo @ [facility] 11/03/19 Hx Pacemaker/ICD Yes: Pacemaker form scanned and placed in surgery folder for dos Pacemaker Rep Required? Yes: Anesthesia requests [facility] called 03/13 Cardiac Clearance Received Yes Comment Cardiac records scanned Diet Type At Home Regular dysphagia No Gastrointestinal Symptoms Constipation Urinary Catheter Present No Hx Urinary Self Catheterization No Diabetes No Hx Drug Resistant Organism No Presence of External or Internal Medical Yes: ICD, CABG x 3, cardiac Devices stent x 1, bilat IOLs Have you had any close contact with No someone diagnosed with COVID-19? Received a COVID vaccine? Yes Received all doses? Yes Marital Status Lives With children Prior Living Arrangements House Support System Child/Children Does the Patient Have Assistance After Yes Surgery Patient Discharge Plan Description Prison Facility/Rehab Comment Pt plans to go to a SNF at [place] Feels Safe in Current Environment Yes Been Physically Hurt or Threatened By a No Person in Current Environment Do you have thoughts of harming yourself None or others? Are you currently considering suicide? No Do you have a plan to hurt yourself or No Plan others? Do You Have Any Spiritual Beliefs That No May Affect Your HC Choices? Do You Have Any Cultural Practices That No May Affect Your HC Choices? Comment Amish Who Can We Speak to About Patient's Care Family, friends Identifying Code for Release of Patient Declines to issue Information Health Care Proxy/Next of Kin Monica (daughter) Health Care Proxy Emergency Contact Name Monica (daughter) Emergency Contact Advance Directives? No Power of Orthopedic Brace Maker Yes Power of Orthopedic Brace Maker Name Monica Medranodaughter) Power of Orthopedic Brace Maker PAC Instructions Durable medical equipment, Medications to take/avoid, Nasal antibiotic,No ETOH/ petroleum product on skin DOS, NPO,Post-op transportation,Pre -surgical wash,Sensory aids, Sturdy shoes/comfortable clothes,Do not bring valuables and remove jewelry
--- NOTE | 2021-03-22 11:32 | PT.IPTN ---
Current Diagnoses Primary osteoarthritis, right shoulder (03/21/21) Surgery Performed Operation Date: 03/21/21 07:45 Actual Procedures p Total Shoulder Arthroplasty(Right) - Travis Ames MD Physical Therapy Treatment Note M2 PT-IP Current Condition Start: 03/21/21 15:50 Freq: NEEDED Status: Active Protocol: Document 03/21/21 14:45 AB (Rec: 03/21/21 16:17 AB [email or web address]) Physical Therapy Current Condition Current Condition Evaluation Date 03/21/21 Treatment Diagnosis s/p R TSA; difficulty in walking Onset Date 03/21/21 M3 PT-IP Subjective Start: 03/21/21 15:50 Freq: NEEDED Status: Active Protocol: Document 03/22/21 11:15 KS (Rec: 03/22/21 12:10 KS [id number]) Subjective Physical Therapy Visit Type Type Treatment Note Visit Start Time 11:15 Visit Stop Time 11:32 Total Visit Minutes 17 Notes Daughter in room Number of WELDER Visits 1 Physical Therapy Visit Comments Patient Comments agreeable to do PT M4 PT-IP Mobility and Gait Start: 03/21/21 15:50 Freq: NEEDED Status: Active Protocol: Document 03/22/21 11:15 KS (Rec: 03/22/21 12:10 KS [id number]) PT-Bed Mobility Assessment Supine to Sit Supine to Sit Standby Assistance Sit to Supine Sit to Supine Standby Assistance PT-Transfer Assessment Sit to and From Stand Sit to and from Stand Standby Assistance,Use of Upper Extremities Equipment Transfer Assistive Device None,Gait Belt Orthotic/Prosthetic Devices or Brace: No Transfers Transfer Destination Bed Transfer Technique ambulated Transfer Ability Level of Assist Standby Assistance,1 Person Assistance,Use of Upper Extremities Comments Mobility Comments Pt in bed upon arrival and daughter in room. Pt able to recall precautions and sup<> sit SBA in flat bed. Pt then sit<>stand SBA and ambulated ~ 30 ft in room before ambulating into hallway to practice stairs (80 ft). He ascended/descended 3 steps x2 w/ L rail ascending R rail descending step over step w/ no cues needed. He then returned to room and bed SBA. Gait Assessment Gait Gait Assistance Required: Standby Assistance,1 Person Assist Distance (Feet) 200 Able to Maintain Weight Bearing Status Yes During Gait Assistive Devices Assistive Device Gait Belt,Front Wheeled Walker Orthotic/Prosthetic Devices or Brace: No Gait Deviations General Gait Pattern Antalgic,Decreased Stride Length,Decreased Feet Clearance,Wide Based Gait Factors Limiting Gait Function Factors Limiting Gait Function Decreased Activity Tolerance, Decreased Strength,Limited Range of Motion,Poor Balance Comments Gait Comments Pt ambulated ~200 ft total w/o AD and SBA. No LOB noticed today. Stair Climbing Assessment Evaluation Level of Assist On Stairs Standby Assistance,1 Person Assistance Devices Stair Climbing Assistive Devices Left Railing Technique/Endurance Stair Climbing Direction Ascend and Descend Stair Climbing Technique Step Over Step Number of Steps Climbed 3 Stair Climbing Set # Repetitions (reps) 2 Comments Stair Climbing Comments Pt ascended/descended 3 steps w/ step over step pattern and L rail ascending R rail descending SBA. Pt has bilateral hand rails at home. He states he feels safe to complete stairs at home and daughter states no concerns either. M5 PT-IP Objective Assessments Start: 03/21/21 15:50 Freq: NEEDED Status: Active Protocol: Document 03/21/21 14:45 AB (Rec: 03/21/21 16:17 AB [id number]) Orientation Orientation/Cognition Level of Alertness Alert Orientation Name,Place,Situation Language Function Ability Hard of Hearing Safety Awareness Understands Safety Issues Memory Description No Deficits Noted Gross Range of Motion Lower Extremity ROM Assessment Within Functional Limits Strength Lower Extremity Strength Assessment Within Functional Limits Sensation Assessment Sensation Gross Sensation Right UE Impaired Sensation Description Numbness Other Assessments Other Other Assessments RUE: still does not have motor control M6 PT-IP Treatment Start: 03/21/21 15:50 Freq: NEEDED Status: Active Protocol: Document 03/22/21 11:15 KS (Rec: 03/22/21 12:10 MT [id number]) Physical Therapy Treatment Exercises Exercises Elbow Flexion/Extension,Wrist ROM,Hand ROM Education Education Provided Precautions,Weight Bearing Status,Post-Op Packet,Safety M7 PT-IP Assessment and Plan Start: 03/21/21 15:50 Freq: NEEDED Status: Active Protocol: Document 03/22/21 11:15 KS (Rec: 03/22/21 12:10 KS [id number]) PT Summary Assessment and Plan Potential Rehabilitation Potential Fair Status of Condition at Evaluation Evolving Summary Impairments Pain,ROM,Strength,Balance, Coordination,Sensation,Tone, Cognition,Bed Mobility, Transfers,Gait,Activity Tolerance Assessment Summary Pt only requiring SBA for bed mobility, transfers, ambulation, and stairs today. He ambulated a total of ~200 ft w/o AD and ascended/ descended 6 steps step over step pattern w/ hand rail. Pt originally planning on SNF, however now feels he is able to go home w/ HH, which I agree. When appropriate, he will require outpatient rehab to improve ROM and strength. Goals Bed Mobility Goal Independent Transfer Goal Independent Gait Goal Independent Gait Distance 250 Other Goals up/down 4 steps 1 rail SBA Days to Meet Goals 10 Frequency of Treatment Frequency Of Treatment Twice a Day Treatment Plan Physical Therapy Treatment Plan Bed Mobility Training,Transfer Training,Gait Training, Therapeutic Exercise,Balance Retraining,Post Op Education, Discharge Planning,Hot or Cold Pack,Neuromuscular Re-ed, Coordination Retraining,Manual Therapy Other Recommendations and Next Treatment pendulum, UE exercises, Focus ambulation, stair climbing Precautions Shoulder Precautions Sling,PROM,Internal Rotation to Body,No External Rotation, No Abduction,Forward Flexion to 90 degrees,Pendulums Weight Bearing Status Weight Bearing Status Non-Weight Bearing Allowed Weight Bearing Amount (enter % RUE NWB or #) (%) Recommendations To Nursing Amount of Assist Needed 1 Person Assist Discharge Recommendations PT Discharge Recommendations Home with Assistance,Home Health,Outpatient PT Transportation Needs at Discharge Private Vehicle,Wheelchair/ Cabulance
[2021-03-22] MEDS: HYDROCODONE/ACET 5/325 TABLET 2 TAB PO ×2 (12:02→20:24)
--- NOTE | 2021-03-22 12:09 | CM.DPNOTE ---
Faxed referral packet per Alea to [facility] and received fax conf. Taylor Cui CM Assist.
[2021-03-22 13:56] VITALS: BP 124/67; PULSE 74; RESP 18; TEMP 36.7; O2SAT 94
--- NOTE | 2021-03-22 14:42 | PT.IPTN ---
Current Diagnoses Primary osteoarthritis, right shoulder (03/21/21) Surgery Performed Operation Date: 03/21/21 07:45 Actual Procedures p Total Shoulder Arthroplasty(Right) - Travis Ames MD Physical Therapy Treatment Note M2 PT-IP Current Condition Start: 03/21/21 15:50 Freq: NEEDED Status: Active Protocol: Document 03/21/21 14:45 AB (Rec: 03/21/21 16:17 AB [id number]) Physical Therapy Current Condition Current Condition Evaluation Date 03/21/21 Treatment Diagnosis s/p R TSA; difficulty in walking Onset Date 03/21/21 M3 PT-IP Subjective Start: 03/21/21 15:50 Freq: NEEDED Status: Active Protocol: Document 03/22/21 14:15 KS (Rec: 03/22/21 14:48 KS [id number]) Subjective Physical Therapy Visit Type Type Treatment Note Visit Start Time 14:15 Visit Stop Time 14:42 Total Visit Minutes 27 Number of TWISTING FRAME CHANGER Visits 2 Physical Therapy Visit Comments Patient Comments agreeable to do PT M4 PT-IP Mobility and Gait Start: 03/21/21 15:50 Freq: NEEDED Status: Active Protocol: Document 03/22/21 14:15 KS (Rec: 03/22/21 14:48 KS [id number]) PT-Bed Mobility Assessment Supine to Sit Supine to Sit Standby Assistance Sit to Supine Sit to Supine Standby Assistance PT-Transfer Assessment Sit to and From Stand Sit to and from Stand Standby Assistance,Use of Upper Extremities Equipment Transfer Assistive Device None,Gait Belt Orthotic/Prosthetic Devices or Brace: No Transfers Transfer Destination Bed Transfer Technique ambulated Transfer Ability Level of Assist Standby Assistance,1 Person Assistance,Use of Upper Extremities Comments Mobility Comments Pt SBA for sup<>sit and sit<> Stand. Educated pt on don/doff of sling which he was able to complete on his own in case a family member is not home to assist. He also complete wrist and hand ROM and elbow flexion w/ mild tightness reposrted with full elbow extension. He then ambulated 215 ft w/o AD and SBA ad returned to room and bed SBA. Gait Assessment Gait Gait Assistance Required: Standby Assistance,1 Person Assist Distance (Feet) 215 Able to Maintain Weight Bearing Status Yes During Gait Assistive Devices Assistive Device Gait Belt,Front Wheeled Walker Orthotic/Prosthetic Devices or Brace: No Gait Deviations General Gait Pattern Antalgic,Decreased Stride Length,Decreased Feet Clearance,Wide Based Gait Factors Limiting Gait Function Factors Limiting Gait Function Decreased Activity Tolerance, Decreased Strength,Limited Range of Motion,Poor Balance Comments Gait Comments Pt ambulated ~215 ft total w/o AD and SBA. No LOB noticed today. M5 PT-IP Objective Assessments Start: 03/21/21 15:50 Freq: NEEDED Status: Active Protocol: Document 03/21/21 14:45 AB (Rec: 03/21/21 16:17 AB [id number]) Orientation Orientation/Cognition Level of Alertness Alert Orientation Name,Place,Situation Language Function Ability Hard of Hearing Safety Awareness Understands Safety Issues Memory Description No Deficits Noted Gross Range of Motion Lower Extremity ROM Assessment Within Functional Limits Strength Lower Extremity Strength Assessment Within Functional Limits Sensation Assessment Sensation Gross Sensation Right UE Impaired Sensation Description Numbness Other Assessments Other Other Assessments RUE: still does not have motor control M6 PT-IP Treatment Start: 03/21/21 15:50 Freq: NEEDED Status: Active Protocol: Document 03/22/21 14:15 KS (Rec: 03/22/21 14:48 KS [id number]) Physical Therapy Treatment Exercises Exercises Elbow Flexion/Extension,Wrist ROM,Hand ROM Education Education Provided Precautions,Weight Bearing Status,Post-Op Packet,Safety Other Treatments Other Treatment Performed educated on sling management/ donning and doffing M7 PT-IP Assessment and Plan Start: 03/21/21 15:50 Freq: NEEDED Status: Active Protocol: Document 03/22/21 14:15 KS (Rec: 03/22/21 14:48 KS [id number]) PT Summary Assessment and Plan Potential Rehabilitation Potential Fair Status of Condition at Evaluation Evolving Summary Impairments Pain,ROM,Strength,Balance, Coordination,Sensation,Tone, Cognition,Bed Mobility, Transfers,Gait,Activity Tolerance Assessment Summary Pt SBA for all mobility and able to correctly owen/doff sling w/ verbal cues. Good tolerance for hand wrist and elbow ROM and flexion/ extension. Pt will be safe to d/c home w/ support and HHPT. Goals Bed Mobility Goal Independent Transfer Goal Independent Gait Goal Independent Gait Distance 250 Other Goals up/down 4 steps 1 rail SBA Days to Meet Goals 10 Frequency of Treatment Frequency Of Treatment Twice a Day Treatment Plan Physical Therapy Treatment Plan Bed Mobility Training,Transfer Training,Gait Training, Therapeutic Exercise,Balance Retraining,Post Op Education, Discharge Planning,Hot or Cold Pack,Neuromuscular Re-ed, Coordination Retraining,Manual Therapy Other Recommendations and Next Treatment pendulum, UE exercises, Focus ambulation, stair climbing Precautions Shoulder Precautions Sling,PROM,Internal Rotation to Body,No External Rotation, No Abduction,Forward Flexion to 90 degrees,Pendulums Weight Bearing Status Weight Bearing Status Non-Weight Bearing Allowed Weight Bearing Amount (enter % RUE NWB or #) (%) Recommendations To Nursing Amount of Assist Needed 1 Person Assist Discharge Recommendations PT Discharge Recommendations Home with Assistance,Home Health,Outpatient PT Transportation Needs at Discharge Private Vehicle,Wheelchair/ Cabulance
[2021-03-22] MEDS: WARFARIN 5 MG TABLET 7.5 MG PO (17:28)
--- NOTE | 2021-03-22 18:08 | PC.NURSE ---
Pt had relatively uneventful day. Med w/ norco for discomfort w/ fair relief. Right shoulder/arm in sling Hemavac intact/patent. Independent in room Call light w/in reach. calls appropriately for needs Continue w/plan of care.
[2021-03-22 18:14] VITALS: BP 141/76; PULSE 90; RESP 18; TEMP 36.7; O2SAT 99
[2021-03-22] MEDS: EZETIMIBE 10 MG TABLET PO (20:24)
[2021-03-22] MEDS: METOPROLOL IR 50 MG TABLET PO (20:25)
[2021-03-22 20:26] VITALS: BP 141/76; PULSE 90
[2021-03-22] MEDS: FENOFIBRATE, MICRONIZED 67 MG CAPSULE 201 MG PO (20:26)
[2021-03-22] MEDS: LOSARTAN 50 MG TABLET PO (20:26)
[2021-03-22 21:45] VITALS: BP 122/84; PULSE 86; RESP 18; TEMP 36.5; O2SAT 96
[2021-03-22] MEDS: DOCUSATE 100 MG CAPSULE PO (22:30)
[2021-03-23] MEDS: HYDROCODONE/ACET 5/325 TABLET 2 TAB PO ×2 (02:30→09:23)
[2021-03-23 02:31] VITALS: BP 108/71; PULSE 75; RESP 16; TEMP 36.8; O2SAT 97
[2021-03-23] MEDS: LORazepam 0.5 MG TABLET PO (02:42)
[2021-03-23 07:05] VITALS: BP 106/68; PULSE 74; RESP 16; TEMP 36.2; O2SAT 96
[2021-03-23] MEDS: DOCUSATE 100 MG CAPSULE PO (08:37)
[2021-03-23] MEDS: TAMSULOSIN 0.4 MG CAPSULE PO (08:38)
[2021-03-23] MEDS: METOPROLOL IR 50 MG TABLET PO (08:38)
[2021-03-23] MEDS: ENOXAPARIN 80 MG/0.8 ML SYRINGE SUBCUT (09:19)
--- NOTE | 2021-03-23 09:40 | PT.IPTN ---
Current Diagnoses Primary osteoarthritis, right shoulder (03/21/21) Surgery Performed Operation Date: 03/21/21 07:45 Actual Procedures p Total Shoulder Arthroplasty(Right) - Travis Ames MD Physical Therapy Treatment Note M2 PT-IP Current Condition Start: 03/21/21 15:50 Freq: NEEDED Status: Active Protocol: Document 03/21/21 14:45 AB (Rec: 03/21/21 16:17 AB [id number]) Physical Therapy Current Condition Current Condition Evaluation Date 03/21/21 Treatment Diagnosis s/p R TSA; difficulty in walking Onset Date 03/21/21 M3 PT-IP Subjective Start: 03/21/21 15:50 Freq: NEEDED Status: Active Protocol: Document 03/23/21 09:22 KS (Rec: 03/23/21 11:48 KS [id number]) Subjective Physical Therapy Visit Type Type Treatment Note Visit Start Time 09:22 Visit Stop Time 09:40 Total Visit Minutes 18 Number of MASSAGE OPERATOR Visits 3 Physical Therapy Visit Comments Patient Comments agreeable to do PT M4 PT-IP Mobility and Gait Start: 03/21/21 15:50 Freq: NEEDED Status: Active Protocol: Document 03/23/21 09:22 KS (Rec: 03/23/21 11:48 KS [id number]) PT-Bed Mobility Assessment Supine to Sit Supine to Sit Standby Assistance Sit to Supine Sit to Supine Standby Assistance PT-Transfer Assessment Sit to and From Stand Sit to and from Stand Standby Assistance,Use of Upper Extremities Equipment Transfer Assistive Device None,Gait Belt Orthotic/Prosthetic Devices or Brace: No Transfers Transfer Destination Bed Transfer Technique ambulated Transfer Ability Level of Assist Standby Assistance,1 Person Assistance,Use of Upper Extremities Comments Mobility Comments Pt continues to require SBA for all mobility, transfers, and ambulation. He has good understanding of sling application, precautions and appropriate exercises. He ambulated ~230 ft SBA w/o AD. He will benefit from HHPT. Gait Assessment Gait Gait Assistance Required: Standby Assistance,1 Person Assist Distance (Feet) 230 Able to Maintain Weight Bearing Status Yes During Gait Assistive Devices Assistive Device Gait Belt,Front Wheeled Walker Orthotic/Prosthetic Devices or Brace: No Gait Deviations General Gait Pattern Antalgic,Decreased Stride Length,Decreased Feet Clearance,Wide Based Gait Factors Limiting Gait Function Factors Limiting Gait Function Decreased Activity Tolerance, Decreased Strength,Limited Range of Motion,Poor Balance Comments Gait Comments Pt ambulated ~230 ft total w/o AD and SBA. No LOB noticed today. M5 PT-IP Objective Assessments Start: 03/21/21 15:50 Freq: NEEDED Status: Active Protocol: Document 03/21/21 14:45 AB (Rec: 03/21/21 16:17 AB [id number]) Orientation Orientation/Cognition Level of Alertness Alert Orientation Name,Place,Situation Language Function Ability Hard of Hearing Safety Awareness Understands Safety Issues Memory Description No Deficits Noted Gross Range of Motion Lower Extremity ROM Assessment Within Functional Limits Strength Lower Extremity Strength Assessment Within Functional Limits Sensation Assessment Sensation Gross Sensation Right UE Impaired Sensation Description Numbness Other Assessments Other Other Assessments RUE: still does not have motor control M6 PT-IP Treatment Start: 03/21/21 15:50 Freq: NEEDED Status: Active Protocol: Document 03/23/21 09:22 KS (Rec: 03/23/21 11:48 KS [id number]) Physical Therapy Treatment Exercises Exercises Elbow Flexion/Extension,Wrist ROM,Hand ROM Education Education Provided Precautions,Weight Bearing Status,Post-Op Packet,Safety Other Treatments Other Treatment Performed educated on sling management/ donning and doffing M7 PT-IP Assessment and Plan Start: 03/21/21 15:50 Freq: NEEDED Status: Active Protocol: Document 03/23/21 09:22 KS (Rec: 03/23/21 11:48 KS [id number]) PT Summary Assessment and Plan Potential Rehabilitation Potential Fair Status of Condition at Evaluation Evolving Summary Impairments Pain,ROM,Strength,Balance, Coordination,Sensation,Tone, Cognition,Bed Mobility, Transfers,Gait,Activity Tolerance Assessment Summary Pt SBA for mobility, able to owen/doff his own sling and has good understanding of precautions and acceptable exercises. He ambulated ~230 ft and has completed stair training. He is safe to go home w/ HHPT and family to assist. Goals Bed Mobility Goal Independent Transfer Goal Independent Gait Goal Independent Gait Distance 250 Other Goals up/down 4 steps 1 rail SBA Days to Meet Goals 10 Frequency of Treatment Frequency Of Treatment Twice a Day Treatment Plan Physical Therapy Treatment Plan Bed Mobility Training,Transfer Training,Gait Training, Therapeutic Exercise,Balance Retraining,Post Op Education, Discharge Planning,Hot or Cold Pack,Neuromuscular Re-ed, Coordination Retraining,Manual Therapy Other Recommendations and Next Treatment pendulum, UE exercises, Focus ambulation, stair climbing Precautions Shoulder Precautions Sling,PROM,Internal Rotation to Body,No External Rotation, No Abduction,Forward Flexion to 90 degrees,Pendulums Weight Bearing Status Weight Bearing Status Non-Weight Bearing Allowed Weight Bearing Amount (enter % RUE NWB or #) (%) Recommendations To Nursing Amount of Assist Needed 1 Person Assist Discharge Recommendations PT Discharge Recommendations Home with Assistance,Home Health,Outpatient PT Transportation Needs at Discharge Private Vehicle,Wheelchair/ Cabulance
--- NOTE | 2021-03-23 09:56 | PM.DS.1 ---
History of Present Illness History of Present Illness Date Patient Seen: 03/23/21 Time Patient Seen: 09:56 Chief complaint: Right shoulder pain Narrative: Patient's pain is been moderate to severe. Denies fever or chills. No nausea or vomiting. No numbness and tingling in the right upper extremities. Discharge Providers Provider Discharge Date: 03/23/21 Primary care physician: Vivian Ching MD Consults: 03/21/21 10:07 Consult to Discharge Planning Routine Comment: Consult to Physical Therapy Evaluate & Treat Comment: Physician Instructions: Evaluate and Treat Consult to Respiratory Therapy Evaluate & Treat Comment: Physician Instructions: Evaluate and treat 03/23/21 08:08 Consult to Home Health Routine Comment: Right total shoulder arthroplasty Reason For Exam: Set up HH RN/PT/OT for discharge to home Discharge provider: Royal Palomo PA-C Summary Hospital Course Discharge Diagnosis: Right shoulder arthritis Hospital Course: Right total shoulder arthroplasty Same procedure as scheduled: Yes Indications: End-stage arthritis right shoulder Surgeon: Travis Ames Real Estate Clerk: Patricia Cullen Anesthesia Type: General and Peripheral nerve block Operative Notes Findings: Significant end-stage arthritic changes to the glenohumeral joint.? Large osteophytes to the anterior inferior and posterior aspect of the humeral head.? Significant flattening of the humeral head with complete loss of cartilage and signs of bleeding bone.? Glenoid had similar changes.? Loose bodies throughout the glenohumeral joint.? No sign of any rotator cuff tear or high-riding humeral head. Closure Type: primary Applied: implant(s) (Size 10 stem, large glenoid, 52 x 20 humeral head) Estimated Blood Loss (mL): 100 Blood products transfused: none Patient admitted to the hospital for right shoulder arthroplasty. Patient consented to the same. Patient taken operating room on March 21, 2021 underwent right total shoulder arthroplasty. Patient back in his room recovering well as in stable condition. Patient has limited assistance at home will be discharged home today with home health services in stable condition. Status at Discharge Cognitive/behavioral status at discharge: oriented Functional status at discharge: independent ambulation Overall status at discharge: patient is progressing back to baseline Exam Vital Signs (past 8 hours): - 03/23/21 02:31 03/23/21 07:05 Temperature 98.2 F 97.2 F L Pulse Rate 75 74 Respiratory Rate 16 16 Blood Pressure 108/71 106/68 Pulse Oximetry 97 96 Oxygen Delivery Method Room Air,Nasal Cannula Oxygen Flow Rate 0 Narrative Exam Narrative: 75-year-old male sitting comfortably in bedside chair in no apparent distress. Scant drainage on the dressing. Hemovac in place with 10 mL of drainage last shift. Motor functions intact distal right upper extremity. Right hand is warm and dry. Sensation grossly intact to light touch distal right upper extremity. Const General: cooperative Nutritional Appearance: average body habitus Orientation: alert Objective Labs Result Diagrams: 03/22/21 05:59 [facility] Medical History AAA (abdominal aortic aneurysm) Anticoagulated on warfarin Atrial fibrillation Atrial flutter Biventricular ICD (implantable cardioverter-defibrillator) in place BPH associated with nocturia CAD, multiple vessel (~1997) Essential hypertension Fatigue due to sleep pattern disturbance History of blood transfusion History of CA (myocardial infarction) (~1997) HTN (hypertension) Hyperlipidemia Hypertriglyceridemia Insomnia due to medical condition Intolerance of continuous positive airway pressure (CPAP) ventilation (~09/2020) Ischemic cardiomyopathy with implantable cardioverter-defibrillator (ICD) Lung nodule Nocturnal hypoxemia Obstructive sleep apnea, adult Peripheral vascular disease Popliteal artery aneurysm, bilateral Stomach ulcer Tachy-parker syndrome Surgical History History of coronary artery bypass graft x 3 (~1997) History of esophagogastroduodenoscopy (EGD) Hx of appendectomy Hx of bilateral cataract extraction (2019) Stented coronary artery (~2000) Social History household members: children Smoking Status: Former smoker alcohol intake: current Discharge Assessment & Plan Assessment and Plan Assessment: Patient progressing as expected status post right total shoulder arthroplasty Plan of Treatment: Patient to follow postop protocol for total shoulder arthroplasty Discharge home today in stable condition with home health services Discharge Plan Discharge Plan Patient Disposition: Home Provider Discharge Comment: Discharge home with home health physical therapy Discharge orders & Medications Discharge Orders: Discharge (Order); Ordered 03/23/21 Ordered By: Royal Palomo Prescriptions: New acetaminophen 325 mg Tablet 975 mg PO TID PRN (Reason: Headache) Qty: 60 0RF oxycodone 10 mg Tablet 10 mg PO Q3HR PRN (Reason: Pain, Severe (7-10)) Qty: 60 0RF hydroxyzine pamoate [Vistaril] 25 mg capsule 25 mg PO QID PRN (Reason: nausea and vomiting) Qty: 30 0RF Rx Instructions: Take 1 tablet/capsule by mouth every 6 hours for nausea and or muscle spasms Continued metoprolol tartrate 25 MG tablet 50 mg PO BID Qty: 0 0RF ezetimibe [Zetia] 10 MG tablet 10 mg PO QDAY Qty: 0 0RF losartan 50 mg Tablet 50 mg PO BEDTIME 0RF tamsulosin 0.4 mg Capsule 0.4 mg PO DAILY 0RF pantoprazole 40 mg Tablet,Delayed Release (Dr/Ec) 40 mg PO DAILY PRN (Reason: Stomach ulcers) 0RF warfarin 5 mg Tablet 7.5 mg PO SEEINSTR 0RF Label Comments: stopped 5 days ago dicyclomine 10 mg Capsule 10 mg PO DAILY PRN (Reason: GI Distress, ulcers) 0RF fenofibrate 160 mg Tablet 160 mg PO BEDTIME 0RF Follow up/Referrals: Travis Ames MD [Physician] - (Two weeks) Vivian Ching MD [Primary Care Provider] - Diet/Activity/Treatments Diet: Diet as Tolerated Activity: Patient will follow our postoperative protocol for total shoulder arthroplasty. Cold/Heat Therapy: Ice as needed Skin/Wound/Dressing Care Report to your healthcare provider any signs of infection, such as:: chills, fever, increased pain, unusual drainage and unusual redness Dressing: Keep dressing clean and dry Visit Report/Discharge Packet Instructions: DI for Shoulder Replacement Stand Alone Forms: Surgery Discharge Discharge Data Primary Care Provider: Vivian Ching Attending Provider: Travis Ames Quality VTE Deep Vein Thrombosis/Pulmonary Embolism Present on Admission: No
--- NOTE | 2021-03-23 11:04 | CM.DPC ---
Addendum entered by UZIEL Flores 03/23/21 13:39: ADD: SW met bedside with pt, who is now dressed in clothes for home, and Dtr and discussed d/c to home with [facility] referral and Dtr seems somewhat anxious but very thankful to have HH in place. SW discussed ambulated well today and Dtr agreeable with discussion with PT again on pt's precautions for his shoulder although Dtr completed CG training with PT yesterday. Pt and Dtr agreeable with d/c home today. Rn to complete d/c instructions soon. BF Addendum entered by UZIEL Flores 03/23/21 12:12: ADD: Per RN, pt now stating he does not feel he should discharge home today. SW met bedside with pt and he states he has had some shoulder pain and maybe a little dizzy or nauseous. SW discussed d/c orders and pt's specific procedure is not typically an Inpt procedure and currently no acute medical need to remain hospital level of care. Pt inquired about SNF again and SW discussed due to pt ambulating 230 ft SBA today his insurance would not approve SNF level of care either. SW discussed concerns that if pt remains in the hospital (and since he is not Inpt Status he cannot contest discharge through Medicare) without acute medical needs he could be liable for the bill if insurance does not cover. Pt acknowledged understanding and discussed HH services and frequency again and he is agreeable calling his Dtr, whom pt lives with, to arrive bedside to confirm they can safely meet pt's needs. Dtr to arrive around 1245 and PT agreeable with discussing how well pt ambulated and completed ADL's if any concerns arise. SW updated RN and will meet bedside again once Dtr arrives. BF Original Note: DCP Discharge Home with HH Per Ortho PA, pt medically stable to d/c home today with HH. Per HOOP FLARING MACHINE OPERATOR HELPER, pt did very well this morning and cleared for safe return home with family and HH. Per RN, pt's Dtr planning to provide transport this morning. SW called [facility] with update on pt d/c and left msg and faxed d/c summary, F2F, and MD orders. Pt already has [facility] contact info in his d/c packet. Plan: Patient to d/c home today via Dtr POV and new [facility] referral to start working with pt likely Thursday. UZIEL Flores
--- NOTE | 2021-03-23 12:21 | PC.NURSE ---
Addendum entered by Moncho Lyons R.N. 03/23/21 14:05: Daughter here, d/c instructions given to Pt and daughter. IV site discontinued without difficulty. Pt escorted to car via w/c by ALVIN Aguilar. Addendum entered by Moncho Lyons R.N. 03/23/21 12:49: Shoulder drain d/c'd per orders and protocal. Reddy well by Pt. Pt feeling much better and looking forward to going home. Family should be here shortly to pickup Pt. Addendum entered by Moncho Lyons R.N. 03/23/21 12:23: Pt wanting to be reclined in chair saying pain in shoulder. feels like the block has worn off. Pt feeling dizzy. Pt stated felt better once reclined. Pt spoke with caseworker regarding going to SNF as he wasn't sure he could handle this at home. See CLAIMS CLERK note. Original Note: Pt a&o offers no overt complaint though shoulder is aching. Pain meds given per orders. Pt taking b'fast. anticipating going home today.
--- NOTE | 2021-03-23 12:38 | PT-IP ANOTE ---
Attempted to see pt at 12:38, pt refused stating no further needs and feels safe and ready to d/c home.
== END 2021-03-23 13:50 | disposition home or self-care (01) ==
LOC: OR 06:08 → AC 06:09
PROVIDERS: PCP Internal Medicine; Referring Provider Orthopaedic Surgery; Visit Provider Orthopaedic Surgery
PROC: 0RQJ0ZZ Repair Right Shoulder Joint, Open Approach (ICD-10-PCS; CPT 23472; principal; 2021-03-21 07:45)
DX: M19.011 Primary osteoarthritis, right shoulder (principal); I25.10 Atherosclerotic heart disease of native coronary artery without angina pectoris; G47.33 Obstructive sleep apnea (adult) (pediatric); K21.9 Gastro-esophageal reflux disease without esophagitis; N18.9 Chronic kidney disease, unspecified; Z95.0 Presence of cardiac pacemaker; E66.9 Obesity, unspecified; Z68.31 Body mass index [BMI] 31.0-31.9, adult; K76.0 Fatty (change of) liver, not elsewhere classified; I25.2 Old myocardial infarction; Z95.1 Presence of aortocoronary bypass graft; Z79.01 Long term (current) use of anticoagulants; I12.9 Hypertensive chronic kidney disease with stage 1 through stage 4 chronic kidney disease, or unspecified chronic kidney disease
CPT/HCPCS: 23472; 36415; 64415; 73030; 85027; 97116; 97162; 97530; C1776; J0171; J0330; J1100; J1650; J2405; J2704; J3010

== ENCOUNTER 2022-05-28 11:20 | Emergency (ER) | payer OTHER, SELFPAY ==
[2021-03-21 11:55] VITALS: BMI 30.5
[2022-05-28] VITALS (11 sets, daily range): BP systolic 126–148; BP diastolic 80–98; PULSE 75–81; RESP 15–28; TEMP 36.7; O2SAT 94–98; BMI 31.1
--- NOTE | 2022-05-28 11:37 | DI.RAD.S_ITS ---
PROCEDURE: XR CHEST 1V INDICATIONS: Shortness of breath TECHNIQUE: One view of the chest was acquired. COMPARISON: [facility], , CHEST 1 VIEW, 03/23/2016, 19:23. FINDINGS: Surgical changes and devices: Sternotomy. There is a cardiac pacemaker. Lungs and pleura: Lung volumes are small. Question left basilar atelectasis. No pleural effusions or pneumothorax. Mediastinum: Mediastinal contours appear normal. Heart size is mildly increased. Bones and chest wall: No suspicious bony lesions. Overlying soft tissues appear unremarkable. IMPRESSION: Small lung lobes likely secondary to shallow inspiration. No acute cardiopulmonary disease. Dictated by: Rito Marin M.D. on 05/28/2022 at 12:04 Approved by: Rito Marin M.D. on 05/28/2022 at 12:05
[2022-05-28 13:00] LABS: COVID19 -Nasal RAPID Negative (Negative)
[2022-05-28 13:05] LABS: Add Manual Diff / Slide Review NO; Basophils Absolute Auto 100 /uL (0-100); Basophils Percent Auto 0.9 % (0-2); Eosinophils Absolute Auto 300 /uL (0-450); Eosinophils Percent Auto 4.1 % (2-4); Hematocrit 46.8 % (41-53); Hemoglobin 15.9 g/dL (13.5-17.5); Lymphocytes Absolute Auto 2400 /uL (1100-4500); Mean Corpuscular HGB Conc 33.9 % (30-36); Mean Corpuscular Hemoglobin 33.4 PG (26-34); Mean Corpuscular Volume 98.4 fL (80-100); Monocytes Absolute Auto 600 /uL (0-900); Monocytes Percent Auto 8.4 % (3-14); Neutrophils Absolute Auto 3900 /uL (1500-7000); Neutrophils Percent Auto 53.6 % (50-75); Platelet Count 185 X10^3/uL (150-400); Red Blood Cell Count 4.75 X10^6/uL (4.5-5.9); Red Cell Distribution Width 13.5 % (11.6-14.8); White Blood Cell Count 7.3 X10^3/uL (4.5-11.0)
[2022-05-28 13:13] LABS: Prothrombin Time 34.6 SECONDS (10.1-12.7)
[2022-05-28 13:24] LABS: Alanine Aminotransferase 21 IU/L (<50); Albumin 4.4 g/dL (3.5-5.0); Albumin Globulin Ratio 1.3 (1.0-2.8); Alkaline Phosphatase 60 U/L (38-126); Aspartate Aminotransferase 27 IU/L (17-59); BUN Creatinine Ratio 23.3 (6-22); Bilirubin Total 0.8 mg/dL (0.2-1.3); Blood Urea Nitrogen 28 mg/dL (9-20); Calcium 9.7 mg/dL (8.4-10.2); Carbon Dioxide 24 mmol/L (22-32); Chloride 107 mmol/L (98-107); Estimated Glomerular Filt Rate > 60 mL/min (>60); Globulin 3.5 g/dL (1.7-4.1); Glucose 106 mg/dL (80-110); HEMOLYSIS < 15 (0-50); Potassium 5.1 mmol/L (3.4-5.1); Sodium 138 mmol/L (137-145); Total Protein 7.9 g/dL (6.3-8.2)
[2022-05-28 13:25] LABS: Lactate (Lactic Acid) 1.1 mmol/L (0.7-2.1)
[2022-05-28 13:36] LABS: NT-proBNP (BNP-Adult 18+) 745 pg/mL (<125); Troponin I < 0.012 ng/mL (0.01-0.034)
[2022-05-28 14:17] LABS: Bacteria Urine None Seen; Culture Indicated Urine Cult Not Indicated; RBC Urine None Seen (0-5/HPF); Urine Comments Microscopic Normal; WBC Urine None Seen (0-5/HPF)
--- NOTE | 2022-06-03 20:44 | ED_ITS ---
HPI - SOB/Dyspnea <Arpan Guajardo PA-C - Last Filed: 06/03/22 20:52> General Chief Complaint: Shortness of Breath/Dyspnea Stated Complaint: thinks he has pneumonia Time Seen by Provider: 05/28/22 13:02 Source: patient Mode of arrival: Ambulatory Limitations: no limitations History of Present Illness HPI Narrative: 76-year-old male with past medical history environmental allergies, AAA, hyper triglyceridemia, CAD, peripheral vascular disease, atrial fibrillation, obstructive sleep apnea, status post a biventricular ICD, hypertension presents to the ED with 2 months of progressive rhinorrhea, coughing, nasal congestion. Patient also endorses some lightheadedness. Patient takes some medication for his allergies, however can not recall the name of the medication. It is a nasal spray that is not Afrin. Patient denies fever, chills, chest pain, shortness of breath, nausea, vomiting, abdominal pain, dizziness, syncope. Patient states that he has been taking an antibiotic for a presumed sinus infection, however it is not helping him. Related Data Home Medications Medication Instructions Recorded Confirmed ezetimibe 10 mg tablet (Zetia) 10 mg PO QDAY ##0 06/14/10 03/21/21 metoprolol tartrate 25 mg tablet 50 mg PO BID ##0 06/14/10 03/21/21 dicyclomine 10 mg capsule 10 mg PO DAILY PRN GI Distress, 03/11/21 03/11/21 ulcers fenofibrate 160 mg tablet 160 mg PO BEDTIME 03/11/21 03/21/21 losartan 50 mg tablet 50 mg PO BEDTIME 03/11/21 03/21/21 pantoprazole 40 mg tablet,delayed 40 mg PO DAILY PRN Stomach ulcers 03/11/21 03/11/21 release tamsulosin 0.4 mg capsule 0.4 mg PO DAILY 03/11/21 03/11/21 warfarin 5 mg tablet 7.5 mg PO SEEINSTR 03/11/21 03/22/21 Previous Rx's Medication Instructions Recorded acetaminophen 325 mg tablet 975 mg PO TID PRN Headache #60 tabs 03/23/21 hydroxyzine pamoate 25 mg capsule 25 mg PO QID PRN nausea and 03/23/21 (Vistaril) vomiting #30 caps oxycodone 10 mg tablet 10 mg PO Q3HR PRN Pain, Severe 03/23/21 (7-10) #60 tabs Allergies Allergy/AdvReac Type Severity Reaction Status Date / Time [id number] Reductase Allergy Severe Dizzy, Verified 03/21/21 06:50 Inhibitor syncope, [[id number] REDUCTASE weakness, INHIBITOR] leg cramps Review of Systems <Arpan Guajardo PA-C - Last Filed: 06/03/22 20:52> Review of Systems ROS Unobtainable: All systems reviewed & are unremarkable except as noted in HPI and below Constitutional Constitutional: Denies chills, Denies fatigue, Denies fever(s), Denies frequent falls, Denies lethargy and Denies weakness Eyes Eyes: Denies change in vision, Denies eye discharge, Denies irritation and Denies loss of vision ENT Ears, Nose, Mouth, and Throat: Denies change in voice, Denies dizziness, Reports nasal congestion, Reports nasal discharge, Denies neck pain, Denies sore throat and Denies throat swelling Cardiovascular Cardiovascular: Denies chest pain, Denies irregular heart rhythm, Denies lightheadedness, Denies palpitations, Denies dyspnea, Denies dyspnea on exertion and Denies orthopnea Respiratory Respiratory: Reports cough, Denies dyspnea, Denies dyspnea on exertion and Denies wheezing Gastrointestinal Gastrointestinal: Denies abdominal pain, Denies change in bowel habits, Denies diarrhea, Denies nausea and Denies vomiting Genitourinary Genitourinary: Denies hematuria, Denies flank pain, Denies urinary incontinence and Denies urinary urgency Musculoskeletal Musculoskeletal: Denies back pain, Denies muscle weakness, Denies neck pain, Denies numbness and Denies tingling Integumentary/Breasts Skin/Breast: Denies pruritus, Denies erythema, Denies rash and Denies wounds Neurologic Neurologic: Denies behavioral changes, Denies confusion, Denies dizziness, Denies frequent falls, Denies loss of vision, Denies numbness, Denies tingling and Denies weakness Psychiatric Psychiatric: Denies anxiety, Denies behavioral changes, Denies confusion, Denies depression, Denies homicidal ideation and Denies suicidal ideation Endocrine Endocrine: Denies fatigue, Denies flushing and Denies palpitations Hematologic/Lymphatic Hematologic/Lymphatic: Denies easy bruising Allergic/Immunologic Allergic/Immunologic: Denies urticaria, Denies throat swelling and Denies wheezing Patient History <Arpan Guajardo PA-C - Last Filed: 06/03/22 20:52> Medical History AAA (abdominal aortic aneurysm) Anticoagulated on warfarin Atrial fibrillation Atrial flutter Biventricular ICD (implantable cardioverter-defibrillator) in place BPH associated with nocturia CAD, multiple vessel (~1997) Essential hypertension Fatigue due to sleep pattern disturbance History of blood transfusion History of [place] (myocardial infarction) (~1997) HTN (hypertension) Hyperlipidemia Hypertriglyceridemia Insomnia due to medical condition Intolerance of continuous positive airway pressure (CPAP) ventilation (~09/2020) Ischemic cardiomyopathy with implantable cardioverter-defibrillator (ICD) Lung nodule Nocturnal hypoxemia Obstructive sleep apnea, adult Peripheral vascular disease Popliteal artery aneurysm, bilateral Stomach ulcer Tachy-parker syndrome Surgical History History of coronary artery bypass graft x 3 (~1997) History of esophagogastroduodenoscopy (EGD) Hx of appendectomy Hx of bilateral cataract extraction (2018) Stented coronary artery (~2000) Social History household members: children Smoking Status: Former smoker alcohol intake: current Smoking Status: Former smoker alcohol intake frequency: holidays/special occasions only Substance Use Type: does not use Exam <Arpan Guajardo PA-C - Last Filed: 06/03/22 20:52> Narrative Exam Narrative: Const General:?cooperative, healthy appearing and comfortable [facility] Head:?normal to inspection Ears:?hearing grossly normal bilaterally Nose:?external nose normal Face and sinus:?normal facial exam and sinuses nontender Mouth:?oral mucosae normal Throat:?posterior oropharynx normal Eyes General:?appearance normal, both eyes and all related structures Neck Neck:?normal visual inspection and no lymphadenopathy noted Resp Effort & Inspection:?normal respiratory effort Auscultation:?clear to auscultation bilaterally Cardio Rate:?regular rate Rhythm:?regular rhythm Neuro General:?patient alert, patient awake and patient oriented x3 Initial Vital Signs Initial Vital Signs: Vital Signs Temperature 98.1 F 05/28/22 11:27 Pulse Rate 81 05/28/22 11:27 Respiratory Rate 18 05/28/22 11:27 Blood Pressure 142/94 H 05/28/22 11:27 Pulse Oximetry 98 05/28/22 11:27 Oxygen Delivery Method Room Air 05/28/22 11:27 <Alexx Whitehead MD - Last Filed: 06/15/22 22:01> Initial Vital Signs Initial Vital Signs: Vital Signs Temperature 98.1 F 05/28/22 11:27 Pulse Rate 81 05/28/22 11:27 Respiratory Rate 18 05/28/22 11:27 Blood Pressure 142/94 H 05/28/22 11:27 Pulse Oximetry 98 05/28/22 11:27 Oxygen Delivery Method Room Air 05/28/22 11:27 MDM - SOB/Dyspnea <Arpan Guajardo PA-C - Last Filed: 06/03/22 20:52> Lab Data 05/28/22 12:55 05/28/22 12:55 Labs: Lab Results 05/28/22 05/28/22 05/28/22 Range/Units 11:45 12:55 12:55 WBC 7.3 (4.5-11.0) X10^3/uL RBC 4.75 (4.5-5.9) X10^6/uL Hgb 15.9 (13.5-17.5) g/dL Hct 46.8 (41-53) % MCV 98.4 (80-100) fL MCH 33.4 (26-34) PG MCHC 33.9 (30-36) % RDW 13.5 (11.6-14.8) % Plt Count 185 (150-400) X10^3/uL Neut % (Auto) 53.6 (50-75) % Lymph % (Auto) 33.0 (25-40) % [place] % (Auto) 8.4 (3-14) % Eos % (Auto) 4.1 H (2-4) % Baso % (Auto) 0.9 (0-2) % Neut # (Auto) 3900 (0346-4566) /uL Lymph # (Auto) 2400 (1216-6060) /uL [place] # (Auto) 600 (0-900) /uL Eos # (Auto) 300 (0-450) /uL Baso # (Auto) 100 (0-100) /uL PT 34.6 H (10.1-12.7) SECONDS INR 3.0 H (0.9-1.3) Sodium (137-145) mmol/L Potassium (3.4-5.1) mmol/L Chloride (98-107) mmol/L Carbon Dioxide (22-32) mmol/L BUN (9-20) mg/dL Creatinine (0.66-1.25) mg/dL Estimated GFR (>60) mL/min BUN/Creatinine Ratio (6-22) Glucose (80-110) mg/dL Lactate (0.7-2.1) mmol/L Calcium (8.4-10.2) mg/dL Total Bilirubin (0.2-1.3) mg/dL AST (17-59) IU/L ALT (<50) IU/L Alkaline Phosphatase (38-126) U/L Troponin I (0.01-0.034) ng/mL NT-Pro-B Natriuret Pep (<125) pg/mL Total Protein (6.3-8.2) g/dL Albumin (3.5-5.0) g/dL Globulin (1.7-4.1) g/dL Albumin/Globulin Ratio (1.0-2.8) Urine RBC (0-5/HPF) Urine WBC (0-5/HPF) Urine Bacteria (None) Ur Culture Indicated? Micro UA Comment SARS-CoV-2 (PCR) Negative (Negative) 05/28/22 05/28/22 05/28/22 Range/Units 12:55 12:55 13:58 WBC (4.5-11.0) X10^3/uL RBC (4.5-5.9) X10^6/uL Hgb (13.5-17.5) g/dL Hct (41-53) % MCV (80-100) fL MCH (26-34) PG MCHC (30-36) % RDW (11.6-14.8) % Plt Count (150-400) X10^3/uL Neut % (Auto) (50-75) % Lymph % (Auto) (25-40) % [place] % (Auto) (3-14) % Eos % (Auto) (2-4) % Baso % (Auto) (0-2) % Neut # (Auto) (4976-0397) /uL Lymph # (Auto) (8265-6326) /uL [place] # (Auto) (0-900) /uL Eos # (Auto) (0-450) /uL Baso # (Auto) (0-100) /uL PT (10.1-12.7) SECONDS INR (0.9-1.3) Sodium 138 (137-145) mmol/L Potassium 5.1 (3.4-5.1) mmol/L Chloride 107 (98-107) mmol/L Carbon Dioxide 24 (22-32) mmol/L BUN 28 H (9-20) mg/dL Creatinine 1.20 (0.66-1.25) mg/dL Estimated GFR > 60 (>60) mL/min BUN/Creatinine Ratio 23.3 H (6-22) Glucose 106 (80-110) mg/dL Lactate 1.1 (0.7-2.1) mmol/L Calcium 9.7 (8.4-10.2) mg/dL Total Bilirubin 0.8 (0.2-1.3) mg/dL AST 27 (17-59) IU/L ALT 21 (<50) IU/L Alkaline Phosphatase 60 (38-126) U/L Troponin I < 0.012 (0.01-0.034) ng/mL NT-Pro-B Natriuret Pep 745 H (<125) pg/mL Total Protein 7.9 (6.3-8.2) g/dL Albumin 4.4 (3.5-5.0) g/dL Globulin 3.5 (1.7-4.1) g/dL Albumin/Globulin Ratio 1.3 (1.0-2.8) Urine RBC None seen (0-5/HPF) Urine WBC None seen (0-5/HPF) Urine Bacteria None seen (None) Ur Culture Indicated? Cult not indicated Micro UA Comment Microscopic normal SARS-CoV-2 (PCR) (Negative) Urine Dip Bedside Urine Glucose Negative Bedside Urine Bilirubin - Negative Bedside Urine Ketone - Negative Urine Specific [place] 1.020 Bedside Urine Occult Blood - Negative Bedside Urine pH 5.5 Bedside Urine Protein +/- 15 Bedside Urine Urobilinogen - Negative Bedside Urine Nitrite - Negative Bedside Urine Leukocytes - Negative Esterase MDM Narrative Medical decision making narrative: 76-year-old male with past medical history environmental allergies, AAA, hypertriglyceridemia, CAD, peripheral vascular disease, atrial fibrillation, obstructive sleep apnea, status post a biventricular ICD, hypertension presents to the ED with 2 months of progressive rhinorrhea, coughing, nasal congestion. Concern for ACS versus pneumonia this allergic rhino versus other. Obtain chest x-ray, EKG, labs, troponin, COVID-19 test. Workup was largely unremarkable with troponin x2 and EKG x2 without acute findings. Patient's symptoms likely due to exacerbation of allergies causing allergic rhinitis and nasal congestion. Recommend a trial of Claritin or Zyrtec and Flonase for symptoms. Patient agrees to follow-up with ENT as soon as possible. ED return precautions were discussed with patient. Patient verbalizes understanding. Medical records reviewed: Yes <Alexx Whitehead MD - Last Filed: 06/15/22 22:01> Lab Data Labs: Lab Results 05/28/22 05/28/22 05/28/22 Range/Units 11:45 12:55 12:55 WBC 7.3 (4.5-11.0) X10^3/uL RBC 4.75 (4.5-5.9) X10^6/uL Hgb 15.9 (13.5-17.5) g/dL Hct 46.8 (41-53) % MCV 98.4 (80-100) fL MCH 33.4 (26-34) PG MCHC 33.9 (30-36) % RDW 13.5 (11.6-14.8) % Plt Count 185 (150-400) X10^3/uL Neut % (Auto) 53.6 (50-75) % Lymph % (Auto) 33.0 (25-40) % [place] % (Auto) 8.4 (3-14) % Eos % (Auto) 4.1 H (2-4) % Baso % (Auto) 0.9 (0-2) % Neut # (Auto) 3900 (2250-1886) /uL Lymph # (Auto) 2400 (2072-8186) /uL [place] # (Auto) 600 (0-900) /uL Eos # (Auto) 300 (0-450) /uL Baso # (Auto) 100 (0-100) /uL PT 34.6 H (10.1-12.7) SECONDS INR 3.0 H (0.9-1.3) Sodium (137-145) mmol/L Potassium (3.4-5.1) mmol/L Chloride (98-107) mmol/L Carbon Dioxide (22-32) mmol/L BUN (9-20) mg/dL Creatinine (0.66-1.25) mg/dL Estimated GFR (>60) mL/min BUN/Creatinine Ratio (6-22) Glucose (80-110) mg/dL Lactate (0.7-2.1) mmol/L Calcium (8.4-10.2) mg/dL Total Bilirubin (0.2-1.3) mg/dL AST (17-59) IU/L ALT (<50) IU/L Alkaline Phosphatase (38-126) U/L Troponin I (0.01-0.034) ng/mL NT-Pro-B Natriuret Pep (<125) pg/mL Total Protein (6.3-8.2) g/dL Albumin (3.5-5.0) g/dL Globulin (1.7-4.1) g/dL Albumin/Globulin Ratio (1.0-2.8) Urine RBC (0-5/HPF) Urine WBC (0-5/HPF) Urine Bacteria (None) Ur Culture Indicated? Micro UA Comment SARS-CoV-2 (PCR) Negative (Negative) 05/28/22 05/28/22 05/28/22 Range/Units 12:55 12:55 13:58 WBC (4.5-11.0) X10^3/uL RBC (4.5-5.9) X10^6/uL Hgb (13.5-17.5) g/dL Hct (41-53) % MCV (80-100) fL MCH (26-34) PG MCHC (30-36) % RDW (11.6-14.8) % Plt Count (150-400) X10^3/uL Neut % (Auto) (50-75) % Lymph % (Auto) (25-40) % [place] % (Auto) (3-14) % Eos % (Auto) (2-4) % Baso % (Auto) (0-2) % Neut # (Auto) (4825-9450) /uL Lymph # (Auto) (4147-4029) /uL [place] # (Auto) (0-900) /uL Eos # (Auto) (0-450) /uL Baso # (Auto) (0-100) /uL PT (10.1-12.7) SECONDS INR (0.9-1.3) Sodium 138 (137-145) mmol/L Potassium 5.1 (3.4-5.1) mmol/L Chloride 107 (98-107) mmol/L Carbon Dioxide 24 (22-32) mmol/L BUN 28 H (9-20) mg/dL Creatinine 1.20 (0.66-1.25) mg/dL Estimated GFR > 60 (>60) mL/min BUN/Creatinine Ratio 23.3 H (6-22) Glucose 106 (80-110) mg/dL Lactate 1.1 (0.7-2.1) mmol/L Calcium 9.7 (8.4-10.2) mg/dL Total Bilirubin 0.8 (0.2-1.3) mg/dL AST 27 (17-59) IU/L ALT 21 (<50) IU/L Alkaline Phosphatase 60 (38-126) U/L Troponin I < 0.012 (0.01-0.034) ng/mL NT-Pro-B Natriuret Pep 745 H (<125) pg/mL Total Protein 7.9 (6.3-8.2) g/dL Albumin 4.4 (3.5-5.0) g/dL Globulin 3.5 (1.7-4.1) g/dL Albumin/Globulin Ratio 1.3 (1.0-2.8) Urine RBC None seen (0-5/HPF) Urine WBC None seen (0-5/HPF) Urine Bacteria None seen (None) Ur Culture Indicated? Cult not indicated Micro UA Comment Microscopic normal SARS-CoV-2 (PCR) (Negative) Urine Dip Bedside Urine Glucose Negative Bedside Urine Bilirubin - Negative Bedside Urine Ketone - Negative Urine Specific [place] 1.020 Bedside Urine Occult Blood - Negative Bedside Urine pH 5.5 Bedside Urine Protein +/- 15 Bedside Urine Urobilinogen - Negative Bedside Urine Nitrite - Negative Bedside Urine Leukocytes - Negative Esterase Discharge Plan Departure Patient Disposition: Home Clinical Impression: Allergic rhinitis Instructions: DI for Allergic Rhinitis Activity Restrictions/Additional Instructions: You were evaluated in the ED today for a runny nose and cough. Your chest x- ray, EKG, labs were normal. Your symptoms are likely due to allergies. You may take Claritin or Zyrtec daily. You may also use Flonase in addition to it. Please follow-up with your ENT for further evaluation. Return to the ED if you have any chest pain or trouble breathing. Prescriptions: No Action metoprolol tartrate 25 MG tablet 50 mg PO BID Qty: 0 ezetimibe [Zetia] 10 MG tablet 10 mg PO QDAY Qty: 0 losartan 50 mg Tablet 50 mg PO BEDTIME tamsulosin 0.4 mg Capsule 0.4 mg PO DAILY pantoprazole 40 mg Tablet,Delayed Release (Dr/Ec) 40 mg PO DAILY PRN (Reason: Stomach ulcers) warfarin 5 mg Tablet 7.5 mg PO SEEINSTR Patient Comments: stopped 5 days ago dicyclomine 10 mg Capsule 10 mg PO DAILY PRN (Reason: GI Distress, ulcers) fenofibrate 160 mg Tablet 160 mg PO BEDTIME acetaminophen 325 mg Tablet 975 mg PO TID PRN (Reason: Headache) Qty: 60 0RF oxycodone 10 mg Tablet 10 mg PO Q3HR PRN (Reason: Pain, Severe (7-10)) Qty: 60 0RF hydroxyzine pamoate [Vistaril] 25 mg capsule 25 mg PO QID PRN (Reason: nausea and vomiting) Qty: 30 0RF Rx Instructions: Take 1 tablet/capsule by mouth every 6 hours for nausea and or muscle spasms Referrals: Vivian Ching MD [Primary Care Provider] - Stand Alone Forms: Patient Portal/API <Alexx Whitehead MD - Last Filed: 06/15/22 22:01> [facility]: I was immediately available in the department for consultation. This documentation has been reviewed and I agree with assessment and plan. Supervised by Alexx Whitehead MD
== END 2022-05-28 15:48 | disposition home or self-care (01) ==
PROVIDERS: Emergency Medicine; Emergency Provider Student in an Organized Health Care Education/Training Program; PCP Internal Medicine
DX: J30.9 Allergic rhinitis, unspecified (principal); R06.02 Shortness of breath; Z79.01 Long term (current) use of anticoagulants; Z20.822 Contact with and (suspected) exposure to COVID-19
CPT/HCPCS: 36415; 71045; 80053; 81003; 81015; 83605; 83880; 84484; 85025; 85610; 87635; 93005; 93010; 99283; 99284; C9803